=== PATIENT | female | born 1965 | race Caucasian/White ===

== ENCOUNTER 2023-06-29 17:26 | Inpatient (IN) | payer OTHER, SELFPAY ==
[2023-06-29 17:27] VITALS: BP 117/78; PULSE 93; RESP 18; TEMP 35.8; O2SAT 96; BMI 33.7
--- NOTE | 2023-06-29 19:01 | US_ITS ---
STUDY: ABDOMINAL ULTRASOUND - RIGHT UPPER QUADRANT REASON FOR VISIT: Female, 57 years old PAIN-RUQ TECHNIQUE: Ultrasound evaluation of the right upper quadrant was performed with real-time and static godoy-scale imaging. TECHNICAL QUALITY: Adequate. COMPARISON: None. FINDINGS: Liver: The liver measures 19.3 cm. There is diffusely increased echogenicity of the liver. The bile ducts are within normal limits. There is hepatic color flow. The direction of portal flow is hepatopetal. There is no demonstrated mass lesion. Gallbladder: Normal distended gallbladder. The gallbladder wall measures 2 mm. There is a positive sonographic Edwards''s sign. There is no pericholecystic fluid. There are multiple gallstones. Common Bile Duct (C.B.D.): The common bile duct measures 6 mm. Pancreas: Limited study due to bowel gas producing artifact Dilatation of pancreatic duct which may be on the basis of inflammatory disease or obstructing mass. CT recommended for more definitive evaluation . Right Kidney: Normal size of the right kidney. The right kidney measures 10.4 x 4.5 x 4.6 cm. Normal renal cortex. The right cortex measures 1.9 cm. There is no demonstrated renal mass or cyst. There is no right hydronephrosis. US/Gallbladder IMPRESSION: Enlarged fatty infiltrated liver. Gallstones and findings consistent with acute cholecystitis Limited visualization of the pancreas but nonspecific dilatation of the pancreatic duct. CT would be useful for more definitive evaluation if clinically indicated Electronically Signed: Blair Gutierrez MD at 20:06 EDT ,
[2023-06-29 19:15] LABS: Bacteria 0 SEEN /hpf (None Seen); Red Blood Cells-Urine 0 SEEN /hpf (0-5)
[2023-06-29 19:21] LABS: Absolute Lymphocyte Count 2.33 X10^3/uL (0.83-4.51); Absolute Neutrophil Count 5.8 X10^3/uL (2.0-7.7); Basophil# 0.07 X10^3/uL; Basophil% 0.8 % (0-1); Eosinophil# 0.22 X10^3/uL; Eosinophils% 2.4 % (0-5); Hematocrit 39.2 % (37-47); Hemoglobin 13.3 g/dL (12.0-15.0); Lymphocyte # 2.33 X10^3/ul (0.83-4.51); Lymphocyte % 25.3 % (19-41); Mean Corp Hgb Conc 33.9 g/dL (32-36); Mean Corpuscular Hgb 28.5 pg (27.0-32.0); Mean Corpuscular Volume 84.1 fL (81-99); Mean Platelet Vol. 9.9 fl (6.2-12.0); Monocyte# 0.69 X10^3/uL; Monocyte% 7.5 % (0-10); NRBC Flagged by Analyzer 0 % (0-5); Neutrophil # 5.79 X10^3/uL (2.7-7.7); Neutrophil % 62.8 % (47-70); Platelet Count 257 K/mm3 (150-450); RBC Distribution Width SD 39.5 fl (35.1-43.9); Red Blood Count 4.66 M/mm3 (4.2-5.4); White Blood Count 9.2 K/mm3 (4.4-11.0)
[2023-06-29] MEDS: 0.9% Normal Saline (1000mL) 1,000 ML 125 ML IV (19:21)
[2023-06-29] MEDS: Morphine 4 MG/ML Syringe IV ×2 (19:21→21:43)
[2023-06-29] MEDS: Ondansetron 4 MG/2 ML Vial IV ×2 (19:22→21:43)
[2023-06-29 19:33] LABS: Color, Urine Yellow (Yellow); Glucose, Dipstick Normal (Normal); Ketone-Dipstick 5 mg/dl (Negative); Leukocyte Esterase-Dipstick 500 /ul (Negative); Nitrite-Dipstick Positive (Negative); Occult Blood-Urine 250 /ul (Negative); Protein-Dipstick 30 mg/dl (Negative); Specific Gravity, Urine 1.025 (1.002-1.030); Urine Bilirubin Dipstick Negative (Negative); Urine Clarity Sl. Cloudy (Clear); Urine Urobilinogen 1 mg/dl (Normal)
[2023-06-29 19:48] LABS: AST(SGOT) 14 U/L (15-37); Alanine Aminotransfer ALT/SGPT 22 U/L (13-56); Albumin, Serum 3.7 g/dL (3.2-5.0); Alkaline Phosphatase 73 U/L (45-117); Bilirubin, Direct 0.12 mg/dL (0.00-0.30); Globulin 3.4 g/dL (2.2-4.2); Lipase 31 U/L (13-75); Protein, Total 7.1 g/dL (6.4-8.2)
--- NOTE | 2023-06-29 19:57 | EDS_ITS ---
HPI History of Present Illness Chief Complaint: Abd Pain Detail of Chief Complaint: Right upper quadrant pain that started 1 week ago. Informant: patient Onset/Context/Timing Onset: Weeks Context: Sudden Onset Timing: Intermittent and Waxes and wanes Quality: Colicky Location: Right upper quadrant radiating through to her back Current Severity: Severe Maximum Severity: Severe Worsened by: Worse after having chocolate chip cookie at 11 AM Relieved by: Nothing Associated Symptoms Associated Symptoms: Nausea and vomiting today Narrative Narrative: Patient is a 57-year-old woman with history of asthma, hypothyroidism who had a CT of the abdomen at outside facility 1 week ago and was told she had gallstones. She presents with acute right upper quadrant pain radiating through to her back. She had nausea and vomiting x1 today. Pain was made worse after having a chocolate chip cookie. There is a family history of cholelithiasis. She denies fever, chills night sweats. She denies black or maroon-colored stool. She does have a remote history of renal calculi. She denies dysuria, frequency, urgency or hematuria. She denies headache, visual, ocular auditory symptoms. She denies chest pain, shortness of breath, dyspnea on exertion, orthopnea or wheezing. Nothing makes the pain better. She states she has had nausea that has been co ntinuous for 1 week. Prior similar symptoms: Yes Recent Illness/Hospitalization: Yes [facility] Medical History Hyperlipidemia Hypothyroidism Home Medications Ranitidine [Zantac] 150 mg PO BID 10/28/15 [History Last Taken 11/07/15 08:00 150 MG] albuterol sulfate 90 mcg/actuation aerosol inhaler (Ventolin HFA) 1 - 2 puff inhalation Q4H PRN PRN Wheezing 10/28/15 [History Last Taken 10/28/15 1 - 2 PUFF] biotin 10,000 mcg capsule (Terrence Biotin) 10,000 mcg PO DAILY 10/28/15 [History Last Taken 10/28/15 97724 MCG] cholecalciferol (vitamin D3) 25 mcg (1,000 unit) tablet (Vitamin D3) 1,000 unit PO DAILY 10/28/15 [History Last Taken 10/28/15 1000 UNIT] coenzyme Q10 100 mg capsule (Co Q-10) 100 mg PO DAILY 10/28/15 [History Last Taken 10/28/15 100 MG] cyanocobalamin (vitamin B-12) 500 mcg tablet 1,500 mcg PO DAILY@0800 10/28/15 [History Last Taken 10/28/15 1500 MCG] multivitamin (Daily Multiple tablet) 1 ea PO DAILY 10/28/15 [History Last Taken 10/28/15 1 EACH] zinc sulfate 50 mg zinc (220 mg) capsule 220 mg PO DAILY 10/28/15 [History Last Taken 10/28/15 220 MG] atorvastatin 20 mg tablet 20 mg PO QHS 06/29/23 [History Last Taken Unknown] ciprofloxacin HCl 500 mg tablet 500 mg PO Q12H 06/29/23 [History Last Taken Unknown] dicyclomine 20 mg tablet 20 mg PO Q6H PRN abdominal pain 06/29/23 [History Last Taken Unknown] levothyroxine 88 mcg tablet 88 mcg PO DAILY 06/29/23 [History Last Taken Unknown] metronidazole 500 mg tablet 500 mg PO Q12H 06/29/23 [History Last Taken Unknown] sertraline 100 mg tablet 100 mg PO Q24H 06/29/23 [History Last Taken Unknown] Allergy/AdvReac Type Severity Reaction Status Date / Time No Known Allergies Allergy Verified 06/29/23 17:27 Social History (Updated 06/29/23 @ 19:[address] Vic Webster MD) household members: spouse Smoking Status: Never smoker ROS ROS ED Constitutional Constitutional ED: Denies chills, fever(s), subjective, sweats or weight loss Eyes Eyes: Denies blurry vision, change in vision or diplopia ENT ENT ED: Denies ear pain, rhinorrhea or sore throat Cardiovascular Cardiovascular: Denies chest pain, orthopnea, palpitations, paroxysmal nocturnal dyspnea or racing heartbeat Respiratory/Chest Respiratory/Chest: Denies cough, dyspnea, dyspnea on exertion, orthopnea or paroxysmal nocturnal dyspnea Gastrointestinal Gastrointestinal: Reports abdominal pain, nausea and vomiting; Denies constipation, diarrhea or melena Genitourinary Genitourinary ED: Denies dysuria, hematuria or urinary frequency Musculoskeletal Musculoskeletal: Denies arthralgias, back pain, myalgias or neck pain Integumentary Denies rash Neurologic Neurologic: Denies headache(s) or paresthesias Endocrine Endocrinology: Denies cold intolerance or heat intolerance Hematologic/Lymphatic Hematologic/Lymphatic: Reports systems reviewed and no addt'l complaints, except as documented EXAM Physical Exam Const Vital Signs: 06/29/23 17:27 Temperature 96.5 F L Temperature Source Temporal Pulse Rate 93 Respiratory Rate 18 Blood Pressure 117/78 Blood Pressure Mean 91 Pulse Ox 96 Oxygen Delivery Method Room Air Positive well nourished, well developed and obese Constitutional Narrative: Discomfort. She is hunched over the examination bed because of pain. General Appearance ED: well developed; Negative for cyanotic, diaphoretic, NAD or pallor Nutritional Appearance: obese HEENT Reports dry mucous membranes HEENT Narrative: Head is atraumatic and normocephalic. Ears are normal. Nares patent. Posterior pharynx is normal. Mouth ED: Yes dry mucous membranes Mouth: dry mucous membranes Eyes PERRL and EOMs intact bilaterally General Eye ED: Negative for pale conjunctiva or scleral icterus Neck no lymphadenopathy, supple and no JVD Chest Wall inspection of chest normal and palpation of chest normal Resp normal respiratory effort and clear to auscultation bilaterally Cardio regular rate, regular rhythm, S1 normal heart sound, S2 normal heart sound and no murmurs GI normal to inspection, nondistended, normoactive bowel sounds, non-distended and no masses; Negative for non-tender or hepatosplenomegaly GI Narrative: Is a clinical Edwards sign. Back/Spine no CVA tenderness Cervical Spine: Negative for cervical spine tenderness Thoracic Spine / Upper Back: Negative for thoracic spinal tenderness Lumbar Spine / Lower Back: Negative for lumbar spinal tenderness Extremity normal to inspection General Extremety ED: Negative for edema or tenderness General Extremity: Negative for edema Neuro oriented x3, CN's II-XII intact bilaterally and no sensory deficits noted Sensorium / Orientation: alert Motor Exam: strength 5/5 throughout Psych mental status grossly normal Skin no rashes or lesions noted, no wounds and skin turgor normal General Skin Exam: elasticity normal; Negative for jaundice or pallor MDM MDM MDM Narrative Medical decision making narrative: Diagnosis is biliary colic due to cholelithiasis, obstructing gallstone neck of the gallbladder, cholecystitis, acute on chronic cholecystitis. IV was established. Patient was medicated with Zofran and morphine. She was made NPO. CBC, liver profile and lipase were ordered. Ultrasound was also ordered. Lab Data Attestation: I reviewed the patient's lab results. Lab results narrative: Count is normal. Basic metabolic panel is normal. Liver profile is normal. Lipase is normal. Labs: Laboratory Results - last 24 hr 06/29/23 18:55 WBC 9.2 RBC 4.66 Hgb 13.3 Hct 39.2 MCV 84.1 MCH 28.5 MCHC 33.9 RDW Std Deviation 39.5 RDW Coeff of Fly 13.0 Plt Count 257 MPV 9.9 Immature Gran % (Auto) 1.200 H Neut % (Auto) 62.8 Lymph % (Auto) 25.3 [place] % (Auto) 7.5 Eos % (Auto) 2.4 Baso % (Auto) 0.8 Absolute Neuts (auto) 5.8 Absolute Lymphs (auto) 2.33 Nucleated RBC % 0 Total Bilirubin 0.40 Direct Bilirubin 0.12 AST 14 L ALT 22 Alkaline Phosphatase 73 Total Protein 7.1 Albumin 3.7 Globulin 3.4 Lipase 31 Urine Color Yellow Urine Clarity Sl. Cloudy Urine pH 5.0 Ur Specific [place] 1.025 Urine Protein 30 H Urine Glucose (UA) Normal Urine Ketones 5 H Urine Occult Blood 250 H Urine Nitrite Positive H Urine Bilirubin Negative Urine Urobilinogen 1 H Ur Leukocyte Esterase 500 H Urine RBC 0 SEEN Urine WBC 10-25 SEEN Ur Squamous Epith Cells 0-5 SEEN Urine Bacteria 0 SEEN Urine Mucus 1+ Radiography Diagnostic Testing: Clinical Impression(s) from Imaging Studies Gallbladder Ultrasound 06/29/23 19:01 IMPRESSION: Enlarged fatty infiltrated liver. Gallstones and findings consistent with acute cholecystitis Limited visualization of the pancreas but nonspecific dilatation of the pancreatic duct. CT would be useful for more definitive evaluation if clinically indicated Electronically Signed: Blair Gutierrez MD at 20:06 EDT , 0Found reveals several gallstones. There may be thickening of the gallbladder wall. The common bile duct appears normal. Awaiting formal read by radiologist. 2000 The radiology report was read. There is no pericholecystic fluid mention his report nor did I see any. Uncertain why he is calling this acute cholecystitis. Will discuss case with Dr. Mohamud. Treatment and Re-Evaluation :: Has pyuria without bacteria. Dr. Pulido requested a urine culture. She also requested Zosyn. Discharge Plan Triage Chief Complaint: Abd Pain ED Provider: Vic Webster Dx/Rx/DC Orders Clinical Impression: Hx of hypercholesterolemia, Pyuria, Acute calculous cholecystitis, Nausea & vomiting Prescriptions: No Action multivitamin [Daily Multiple] 1 EACH tablet 1 ea PO DAILY cyanocobalamin (vitamin B-12) 500 MCG tablet 1,500 mcg PO DAILY@0800 biotin [Terrence Biotin] 10,000 MCG capsule 10,000 mcg PO DAILY albuterol sulfate [Ventolin HFA] 1 INHALER inhaler 1 - 2 puff inhalation Q4H PRN PRN (Reason: Wheezing) coenzyme Q10 [Co Q-10] 100 MG capsule 100 mg PO DAILY zinc sulfate 220 MG capsule 220 mg PO DAILY cholecalciferol (vitamin D3) [Vitamin D3] 1,000 UNIT tablet 1,000 unit PO DAILY Ranitidine [Zantac] 150 MG tablet 150 mg PO BID atorvastatin 20 mg tablet 20 mg PO QHS Patient Comments: Take 1 tablet by mouth daily at bedtime. For cholesterol. ciprofloxacin HCl 500 mg tablet 500 mg PO Q12H Patient Comments: Take 1 tablet (500 mg) by mouth 2 times a day for 7 days. dicyclomine 20 mg tablet 20 mg PO Q6H PRN (Reason: abdominal pain) Patient Comments: Take 1 tablet (20 mg) by mouth 4 times a day before meals. levothyroxine 88 mcg tablet 88 mcg PO DAILY Patient Comments: TAKE 1 TABLET BY MOUTH DAILY before BREAKFAST metronidazole 500 mg tablet 500 mg PO Q12H Patient Comments: Take 1 tablet (500 mg) by mouth 2 times a day for 7 days. DO NOT TAKE WITH ALCOHOL sertraline 100 mg tablet 100 mg PO Q24H Patient Comments: Take 1 tablet by mouth once daily. Primary Care Provider: Blair Cheatham Referrals: Blair Cheatham MD [Primary Care Provider] - Disposition Disposition: Acute Care Hospital [facility]
[2023-06-29 20:00] VITALS: BP 175/114; PULSE 80; RESP 16; O2SAT 97
[2023-06-29 20:12] LABS: Mucous, Urine 1+ /hpf (<or=2+); Squamous Epithelial Cells - UA 0-5 SEEN /hpf (5-10); White Blood Cells 10-25 SEEN /hpf (0-5)
--- NOTE | 2023-06-29 20:48 | CT_ITS ---
EXAM: CT ABDOMEN AND PELVIS WITH INTRAVENOUS CONTRAST CLINICAL INDICATION: Upper quadrant pain, history of recent colitis TECHNIQUE: Helically acquired images were obtained of the abdomen and pelvis with intravenous contrast. This CT exam was performed using one or more of the following dose reduction techniques: automated exposure control, adjustment of the mA and/or kV according to patient size, and/or use of iterative reconstruction technique. CONTRAST: Oral and amp; IV Gastrografin and amp; 100mL [id number] COMPARISON: Right upper quadrant ultrasound on the same date. FINDINGS: LOWER THORAX: No significant abnormality. Lung bases are clear. No cardiomegaly. No significant pericardial effusion. ABDOMEN: LIVER: Hepatomegaly. GALLBLADDER AND BILE DUCTS: Cholelithiasis correlate with comparison ultrasound. No secondary signs of acute cholecystitis. No intra- or extrahepatic biliary ductal dilation. PANCREAS: No significant abnormality. No focal cystic or solid mass. SPLEEN: Splenomegaly. ADRENALS: No significant abnormality. No nodules. KIDNEYS AND URETERS: No significant abnormality. Normal renal size and position. No hydronephrosis. STOMACH AND BOWEL: Air-fluid levels within nondistended colon and no evidence of colonic wall thickening. PELVIS: APPENDIX: Normal appendix. BLADDER: No significant abnormality. REPRODUCTIVE: Normal as visualized. No mass. ABDOMEN and PELVIS: INTRAPERITONEAL SPACE: No significant abnormality. No ascites or other fluid collection. No free air. BONES/JOINTS: Degenerative changes in the spine. No suspicious lytic or blastic abnormality. SOFT TISSUES: No significant abnormality. No discrete abdominal or pelvic wall hernia. VASCULATURE: Trace atherosclerosis. Abdominal aorta is non-dilated. LYMPH NODES: No significant abnormality. No enlarged lymph nodes. CT/Abdomen/Pelvis WITH Contrast IMPRESSION: 1. No evidence of acute appendicitis. 2. Air-fluid levels within nondistended colon and no evidence of colonic wall thickening. Findings may be related to a diarrheal state or with the given history of near resolution of previously diagnosed colitis. 3. Hepatosplenomegaly. 4. Cholelithiasis correlate with comparison ultrasound. No secondary signs of acute cholecystitis. If there is clinical ambiguity, consider a hepatobiliary scan. Electronically Signed: Jonnathan Collier DO at 23:04 EDT ,
[2023-06-29] MEDS: Piperacil/Tazobactam 4.5 GM in 0.9% Normal Saline (100mL MB+) 100 ML IV (20:57)
[2023-06-29 21:39] LABS: Anion Gap 6 (5-15); BUN 11 mg/dL (7-18); BUN/Creat Ratio 17.5 RATIO (10-20); Calcium,Total 8.6 mg/dL (8.5-10.1); Chloride 106 mmol/L (98-107); Creatinine, Serum 0.63 mg/dL (0.55-1.02); EST Glomerular Filtration Rate 104 mL/min (>60); Est Glom Filt Rate - Afr Amer 126 mL/min (>60); Glucose 130 mg/dL (74-106); Potassium 3.5 mmol/L (3.5-5.1); Sodium Level 138 mmol/L (136-145)
[2023-06-29] MEDS: Pantoprazole Sodium 40 MG in 0.9% Normal Saline (100mL MB+) 100 ML 330 MG IV (21:44)
[2023-06-29 21:48] VITALS: BP 163/120; PULSE 84; RESP 16; O2SAT 97
[2023-06-29 22:46] VITALS: BP 144/85; PULSE 82; RESP 16; O2SAT 97
--- NOTE | 2023-06-29 23:37 | HP.PCM.SX_ITS ---
HPI - General General Date of Admission: 06/29/23 HPI Narrative RADHA MARAVILLA, is a 57 F who presents to the ER due to epigastric and right upper quadrant pain. Patient states she was previously at [place] last Tuesday diagnosed with colitis and she has been on Cipro Flagyl since then and also saw [facility] general surgery PA in follow-up. When patient came to the ER last Tuesday he complains of more upper abdominal pain. CT abdomen pelvis question colitis of the sigmoid rectum area. Patient has been having diarrhea but patient states she does have a history of mostly having diarrhea as well. Patient did have nausea and vomiting today. States she had a chocolate c ookie about 11 AM and nausea vomiting may be at 2 PM patient is not the best historian as far as time. Per note with PCP follow-up patient had [facility]ger Elbert with breaded chicken and Schuster and had pain in the office at the time of follow- up which was just yesterday. Plan from general surgery was to get an upper and lower scope. Patient had a previous colonoscopy in [address] Mcmahan. Patient on ultrasound showed positive Edwards sign, normal wall 2 mm, cholelithiasis, normal common bile duct, no pericholecystic fluid. Patient's white blood count was within normal limits as patient was on Cipro and Flagyl as an outpatient. Patient also been complaining of nausea every day even before she ever woke up. [facility] Medical History (Updated 06/30/23 @ 08:[address] Roxana Mohamud MD) Cervical cancer Hyperlipidemia Hypothyroidism Home Medications Ranitidine [Zantac] 150 mg PO BID 10/28/15 [History Last Taken 11/07/15 08:00 150 MG] albuterol sulfate 90 mcg/actuation aerosol inhaler (Ventolin HFA) 1 - 2 puff inhalation Q4H PRN PRN Wheezing 10/28/15 [History Last Taken 10/28/15 1 - 2 PUFF] biotin 10,000 mcg capsule (Terrence Biotin) 10,000 mcg PO DAILY 10/28/15 [History Last Taken 10/28/15 04584 MCG] cholecalciferol (vitamin D3) 25 mcg (1,000 unit) tablet (Vitamin D3) 1,000 unit PO DAILY 10/28/15 [History Last Taken 10/28/15 1000 UNIT] coenzyme Q10 100 mg capsule (Co Q-10) 100 mg PO DAILY 10/28/15 [History Last Taken 10/28/15 100 MG] cyanocobalamin (vitamin B-12) 500 mcg tablet 1,500 mcg PO DAILY@0800 10/28/15 [History Last Taken 10/28/15 1500 MCG] multivitamin (Daily Multiple tablet) 1 ea PO DAILY 10/28/15 [History Last Taken 10/28/15 1 EACH] zinc sulfate 50 mg zinc (220 mg) capsule 220 mg PO DAILY 10/28/15 [History Last Taken 10/28/15 220 MG] atorvastatin 20 mg tablet 20 mg PO QHS 06/29/23 [History Last Taken Unknown] ciprofloxacin HCl 500 mg tablet 500 mg PO Q12H 06/29/23 [History Last Taken Unknown] dicyclomine 20 mg tablet 20 mg PO Q6H PRN abdominal pain 06/29/23 [History Last Taken Unknown] levothyroxine 88 mcg tablet 88 mcg PO DAILY 06/29/23 [History Last Taken Unknow n] metronidazole 500 mg tablet 500 mg PO Q12H 06/29/23 [History Last Taken Unknown] sertraline 100 mg tablet 100 mg PO Q24H 06/29/23 [History Last Taken Unknown] Allergy/AdvReac Type Severity Reaction Status Date / Time No Known Allergies Allergy Verified 06/29/23 17:27 Surgical History (Updated 06/30/23 @ 01:39 by Lillian Smallwood) History of radical hysterectomy Social History (Updated 06/29/23 @ 19:[address] Vic Webster MD) household members: spouse Smoking Status: Never smoker ROS Constitutional Constitutional: Reports anorexia; Denies chills Eyes Eyes: Denies loss of vision ENT HEENT: Denies dysphagia Cardiovascular Cardiovascular: Denies chest pain Respiratory/Chest Respiratory/Chest: Denies cough Gastrointestinal Gastrointestinal: Reports abdominal pain, diarrhea, nausea and vomiting; Denies melena Genitourinary Genitourinary: Denies hematuria Musculoskeletal Musculoskeletal: Denies joint swelling Integumentary Integumentary: Denies jaundice Neurologic Neurologic: Denies focal weakness Psychiatric Psychiatric: Denies anxiety Hematologic/Lymphatic Hematologic/Lymphatic: Denies easy bleeding Vital Signs Vital Signs Vital Signs: 06/29/23 17:27 06/29/23 20:00 06/29/23 21:48 Temperature 96.5 F L Temperature Source Temporal Pulse Rate 93 80 84 Respiratory Rate 18 16 16 Blood Pressure 117/78 175/114 H 163/120 H Blood Pressure Mean 91 134 134 Pulse Ox 96 97 97 Oxygen Delivery Method Room Air Room Air Room Air 06/29/23 22:46 Temperature Temperature Source Pulse Rate 82 Respiratory Rate 16 Blood Pressure 144/85 H Blood Pressure Mean 104 Pulse Ox 97 Oxygen Delivery Method Room Air Weight Weight: 196 lb 14.4 oz Body Mass Index (BMI) 33.7 Physical Exam Const oriented x3 Resp normal respiratory effort Cardio regular rate GI soft to palpation Palpation: tender epigastric, RUQ and other (Equivocal rebound, no guarding) Extremity normal to inspection Results Lab / Micro Data 06/30/23 05:04 06/30/23 05:04 Labs: Laboratory Results - last 24 hr 06/29/23 18:55: WBC 9.2, RBC 4.66, Hgb 13.3, Hct 39.2, MCV 84.1, MCH 28.5, MCHC 33.9, RDW Std Deviation 39.5, RDW Coeff of Fly 13.0, Plt Count 257, MPV 9.9, Immature Gran % (Auto) 1.200 H, Neut % (Auto) 62.8, Lymph % (Auto) 25.3, [place] % (Auto) 7.5, Eos % (Auto) 2.4, Baso % (Auto) 0.8, Absolute Neuts (auto) 5.8, Absolute Lymphs (auto) 2.33, Nucleated RBC % 0, Sodium 138, Potassium 3.5, Chloride 106, Carbon Dioxide 26.0, Anion Gap 6, BUN 11, Creatinine 0.63, Estim Creat Clear Calc 86.10, Est GFR (MDRD) Af Amer 126, Est GFR (MDRD) Non-Af 104, BUN/Creatinine Ratio 17.5, Glucose 130 H, Calcium 8.6, Total Bilirubin 0.40, Direct Bilirubin 0.12, AST 14 L, ALT 22, Alkaline Phosphatase 73, Total Protein 7.1, Albumin 3.7, Globulin 3.4, Lipase 31, Urine Color Yellow, Urine Clarity Sl. Cloudy, Urine pH 5.0, Ur Specific [place] 1.025, Urine Protein 30 H, Urine Glucose (UA) Normal, Urine Ketones 5 H, Urine Occult Blood 250 H, Urine Nitrite Positive H, Urine Bilirubin Negative, Urine Urobilinogen 1 H, Ur Leukocyte Esterase 500 H, Urine RBC 0 SEEN, Urine WBC 10-25 SEEN, Ur Squamous Epith Cells 0-5 SEEN, Urine Bacteria 0 SEEN, Urine Mucus 1+ Radiology Impression Gallbladder Ultrasound 06/29/23 19:01 IMPRESSION: Enlarged fatty infiltrated liver. Gallstones and findings consistent with acute cholecystitis Limited visualization of the pancreas but nonspecific dilatation of the pancreatic duct. CT would be useful for more definitive evaluation if clinically indicated Electronically Signed: Blair Gutierrez MD at 20:06 EDT , Abdomen/Pelvis CT 06/29/23 20:48 IMPRESSION: 1. No evidence of acute appendicitis. 2. Air-fluid levels within nondistended colon and no evidence of colonic wall thickening. Findings may be related to a diarrheal state or with the given history of near resolution of previously diagnosed colitis. 3. Hepatosplenomegaly. 4. Cholelithiasis correlate with comparison ultrasound. No secondary signs of acute cholecystitis. If there is clinical ambiguity, consider a hepatobiliary scan. Electronically Signed: Jonnathan Collier DO at 23:04 EDT , Assessment & Plan Assessment/Plan (1) Acute calculous cholecystitis: (2) Nausea & vomiting: (3) UTI (urinary tract infection): (4) Diabetes mellitus: PLAN: Plan Patient did have a recheck CT abdomen pelvis as we are not able to get the ones from [facility] digitally. Did not show any evidence of colitis that I could see. Also the colitis that was called previously was in the sigmoid rectum area on that side or patient's pain is. We will plan for a laparoscopic cholecystectomy. We will admit patient n .p.o./IV fluids. Pain control Zosyn IV for acute cholecystitis Roxana Mohamud M.D. Pager: [phone] [facility] [address] [place] [address], [facility], [address] [place] [address] Office: [phone]
[2023-06-30] VITALS (16 sets, daily range): BP systolic 85–190; BP diastolic 57–123; PULSE 76–98; RESP 16–18; TEMP 36.3–36.7; O2SAT 92–98; BMI 33.6
[2023-06-30] MEDS: 0.9% Saline Lock 10 ML Syringe IV ×4 (02:35→11:34)
[2023-06-30] MEDS: Ondansetron 4 MG/2 ML Vial IV ×2 (02:37→10:48)
[2023-06-30] MEDS: HYDROmorphone 1 MG/ML Syringe IV ×2 (02:37→19:39)
[2023-06-30] MEDS: 0.9% Normal Saline (1000mL) 1,000 ML 120 ML IV ×2 (05:43→14:45)
[2023-06-30] MEDS: Piperacil/Tazobactam 3.375 GM in 0.9% Normal Saline (50mL MB+) 50 ML IV ×2 (06:02→14:45)
[2023-06-30] MEDS: Levothyroxine 88 MCG Tablet PO (06:06)
[2023-06-30] MEDS: HYDROmorphone 0.5 MG/0.5 ML SYRINGE IV ×2 (06:10→11:34)
[2023-06-30 06:25] LABS: Bedside Glucose 141 mg/dL (74-106)
[2023-06-30 06:44] LABS: Absolute Lymphocyte Count 1.73 X10^3/uL (0.83-4.51); Absolute Neutrophil Count 4.6 X10^3/uL (2.0-7.7); Basophil# 0.03 X10^3/uL; Basophil% 0.4 % (0-1); Eosinophil# 0.21 X10^3/uL; Eosinophils% 2.9 % (0-5); Hematocrit 35.8 % (37-47); Hemoglobin 12.1 g/dL (12.0-15.0); Lymphocyte # 1.73 X10^3/ul (0.83-4.51); Lymphocyte % 23.8 % (19-41); Mean Corp Hgb Conc 33.8 g/dL (32-36); Mean Corpuscular Hgb 28.7 pg (27.0-32.0); Mean Platelet Vol. 10.1 fl (6.2-12.0); Monocyte# 0.62 X10^3/uL; Monocyte% 8.5 % (0-10); NRBC Flagged by Analyzer 0 % (0-5); Neutrophil # 4.63 X10^3/uL (2.7-7.7); Neutrophil % 63.8 % (47-70); Platelet Count 217 K/mm3 (150-450); RBC Distribution Width CV 13.1 % (11.6-14.6); RBC Distribution Width SD 40.5 fl (35.1-43.9); Red Blood Count 4.21 M/mm3 (4.2-5.4); White Blood Count 7.3 K/mm3 (4.4-11.0)
[2023-06-30 07:05] LABS: Anion Gap 7 (5-15); BUN 7 mg/dL (7-18); BUN/Creat Ratio 12.2 RATIO (10-20); Calcium,Total 7.9 mg/dL (8.5-10.1); Chloride 107 mmol/L (98-107); Creatinine, Serum 0.57 mg/dL (0.55-1.02); EST Glomerular Filtration Rate 115 mL/min (>60); Est Glom Filt Rate - Afr Amer 140 mL/min (>60); Estimated Creatinine Clearance 95.17 ml/min; Glucose 139 mg/dL (74-106); Potassium 3.4 mmol/L (3.5-5.1); Sodium Level 141 mmol/L (136-145)
--- NOTE | 2023-06-30 08:04 | PN.SURG_ITS ---
Subjective Subjective Patient still complaining of some right upper quadrant pain throughout the night. Controlled with pain meds. Objective Data Objective Data Vital Signs: Vital Signs Temp Pulse Resp BP Pulse Ox O2 Del Method 98 F 76 18 137/84 H 98 Room Air 06/30/23 01:51 06/30/23 01:51 06/30/23 01:51 06/30/23 01:51 06/30/23 01:51 06/30/23 01:51 Oxygen Delivery Method Room Air Weight: 196 lb Body Mass Index (BMI) 33.6 Intake & Output: Intake and Output for Last 24 Hours 06/28/23 06/29/23 06/30/23 23:59 23:59 23:59 Intake Total 210 / 210 1000 / 1000 Balance 210 / 210 1000 / 1000 Lab / Micro Data 06/30/23 05:04 06/30/23 05:04 Labs: Laboratory Results - last 24 hr 06/29/23 18:55: WBC 9.2, RBC 4.66, Hgb 13.3, Hct 39.2, MCV 84.1, MCH 28.5, MCHC 33.9, RDW Std Deviation 39.5, RDW Coeff of Fly 13.0, Plt Count 257, MPV 9.9, Immature Gran % (Auto) 1.200 H, Neut % (Auto) 62.8, Lymph % (Auto) 25.3, [place] % (Auto) 7.5, Eos % (Auto) 2.4, Baso % (Auto) 0.8, Absolute Neuts (auto) 5.8, Absolute Lymphs (auto) 2.33, Nucleated RBC % 0, Sodium 138, Potassium 3.5, Chloride 106, Carbon Dioxide 26.0, Anion Gap 6, BUN 11, Creatinine 0.63, Estim Creat Clear Calc 86.10, Est GFR (MDRD) Af Amer 126, Est GFR (MDRD) Non-Af 104, BUN/Creatinine Ratio 17.5, Glucose 130 H, Calcium 8.6, Total Bilirubin 0.40, Direct Bilirubin 0.12, AST 14 L, ALT 22, Alkaline Phosphatase 73, Total Protein 7.1, Albumin 3.7, Globulin 3.4, Lipase 31, Urine Color Yellow, Urine Clarity Sl. Cloudy, Urine pH 5.0, Ur Specific [place] 1.025, Urine Protein 30 H, Urine Glucose (UA) Normal, Urine Ketones 5 H, Urine Occult Blood 250 H, Urine Nitrite Positive H, Urine Bilirubin Negative, Urine Urobilinogen 1 H, Ur Leukocyte Esterase 500 H, Urine RBC 0 SEEN, Urine WBC 10-25 SEEN, Ur Squamous Epith Cells 0-5 SEEN, Urine Bacteria 0 SEEN, Urine Mucus 1+ 06/30/23 05:04: WBC 7.3, RBC 4.21, Hgb 12.1, Hct 35.8 L, MCV 85.0, MCH 28.7, MCHC 33.8, RDW Std Deviation 40.5, RDW Coeff of Fly 13.1, Plt Count 217, MPV 10.1, Immature Gran % (Auto) 0.600, Neut % (Auto) 63.8, Lymph % (Auto) 23.8, [place] % (Auto) 8.5, Eos % (Auto) 2.9, Baso % (Auto) 0.4, Absolute Neuts (auto) 4.6, Absolute Lymphs (auto) 1.73, Nucleated RBC % 0, Sodium 141, Potassium 3.4 L , Chloride 107, Carbon Dioxide 27.0, Anion Gap 7, BUN 7, Creatinine 0.57, Estim Creat Clear Calc 95.17, Est GFR (MDRD) Af Amer 140, Est GFR (MDRD) Non-Af 115, BUN/Creatinine Ratio 12.2, Glucose 139 H, Calcium 7.9 L 06/30/23 06:04: POC Glucose 141 H Radiography Diagnostic Testing: Radiology Impression Gallbladder Ultrasound 06/29/23 19:01 IMPRESSION: Enlarged fatty infiltrated liver. Gallstones and findings consistent with acute cholecystitis Limited visualization of the pancreas but nonspecific dilatation of the pancreatic duct. CT would be useful for more definitive evaluation if clinically indicated Electronically Signed: Blair Gutierrez MD at 20:06 EDT , Abdomen/Pelvis CT 06/29/23 20:48 IMPRESSION: 1. No evidence of acute appendicitis. 2. Air-fluid levels within nondistended colon and no evidence of colonic wall thickening. Findings may be related to a diarrheal state or with the given history of near resolution of previously diagnosed colitis. 3. Hepatosplenomegaly. 4. Cholelithiasis correlate with comparison ultrasound. No secondary signs of acute cholecystitis. If there is clinical ambiguity, consider a hepatobiliary scan. Electronically Signed: Jonnathan Collier DO at 23:04 EDT , Physical Exam Const oriented x3 Resp normal respiratory effort Cardio regular rate GI soft to palpation Palpation: tender epigastric and RUQ Assessment & Plan Assessment/Plan (1) Acute calculous cholecystitis: (2) Nausea & vomiting: (3) UTI (urinary tract infection): (4) Diabetes mellitus: PLAN: Plan Reviewed the anatomy with the patient and discussed the procedure: laparoscopic cholecystectomy with possible cholangiograms, possible open. Review risks including but not limited to bleeding, infection, hernia, bile leak, retained gallstones requiring another procedure ERCP- Endoscopic Retrograde Cholangiopancreatography, injury to another organ (bile ducts, common bile duct, small bowel, etc.) and conversion to an open procedure. All questions were answered. Continue n.p.o./IV fluids IV Zosyn Pain control Urine culture pending. Roxana Mohamud M.D. Pager: [phone] [facility] [address] [place] [address], [address] [place] [address] Office: [phone]
--- NOTE | 2023-06-30 08:05 | NURSING ---
Called Dr. Cehatham's office at this time to get an accurate medlist for patient. Janett states she will let them know to fax it over.
[2023-06-30] MEDS: Pantoprazole Sodium 40 MG in 0.9% Normal Saline (100mL MB+) 100 ML 330 MG IV (09:28)
[2023-06-30 11:46] LABS: Bedside Glucose 139 mg/dL (74-106)
--- NOTE | 2023-06-30 14:31 | NURSING ---
Patient off unit to OR at this time.
--- NOTE | 2023-06-30 14:32 | NURSING ---
Sushila hui sent down with patient.
--- NOTE | 2023-06-30 15:00 | GALL_PTH ---
PATIENT: RADHA MARAVILLA LOC: PCU U#:[id number] AGE/SX: 57/F ROOM: [facility] RE07/02/[address]: Dr. Roxana Mohamud MD : 1965 BED: 1 DIS: 07/03/2023 SPEC #: [id number] RECD: 06/30/23 18:12 STATUS: KARAN MAGALLON #: [id number] HARLEY: 06/30/23 15:[address]: Roxana Mohamud DEPT: SURGICAL PATHOLOGY RECD BY: Gail Byrd ENTERED: 07/01/23 07:58 SP TYPE: JUHI VAIL DR: Dr. Blair Cheatham MD Tissues: Gallbladder, NOS Procedures: Surgery Specimen Level III HEADER OPERATION: Laparoscopic cholecystectomy with IOC PRE-OP DIAGNOSIS: Acute calculous cholecystitis, nausea and vomiting, UTI TISSUE SUBMITTED: Gallbladder MICROSCOPIC DIAGNOSIS Gallbladder, cholecystectomy: Chronic cholecystitis and cholelithiasis. AM:audrey 07/04/2023 MICROSCOPIC DESCRIPTION Slides are reviewed. GROSS DESCRIPTION Received is one container labeled with the patient's name and designated gallbladder. The specimen consists of a gallbladder measuring 6.0 cm in length and 3.0 cm in diameter. The external surface is pink-ogden, smooth and glistening for the most part. Focally it is granular, hemorrhagic and contains cautery artifact. The gallbladder contains green-yellow mucoid bile and multiple multifaceted brownish-black to orange stones measuring in aggregate 4.0 x 4.0 x 1.0 cm and 0.6 to 1.0 cm in greatest dimension. Sections of the fundus reveal focal cystic area measuring 0.5 cm in greatest dimension. The mucosa is bile-stained and without any mass lesions. The gallbladder wall measures 0.3 cm in thickness. [employer] Liaison sections from the gallbladder and the cystic duct are submitted in one cassette. The cyst area in fundus is entirely submitted. / SJ:audrey 07/01/2023 TC:3 CPT: 62042
--- NOTE | 2023-06-30 16:33 | OP.PCM_ITS ---
Report of Operation Date of Procedure: 06/30/23 Pre-Operative Diagnosis: Acute cholecystitis Post-Operative Diagnosis: Same Surgery/Procedure Performed:: Laparoscopic cholecystectomy Surgeon: Roxana Mohamud dispenser operator: Renee Evans Type of Anesthesia: General/Supplemental Anesthesiologist: Robin Sierra Special Medications: Zosyn 3.375 g IV every 8 hours for acute cholecystitis Specimen's removed: Gallbladder and stones Estimated Blood Loss (mL): 20 cc Description of Procedure: Indications: this is a 57 year-old female who developed abdominal pain/nausea/vomiting and on workup was found to have cholelithiasis, acute cholecystitis, with a normal common bile duct. Laparoscopic cholecystectomy was elected. Description procedure: The patient was placed on operating table in supine position. A timeout was completed verifying correct patient, procedure, site, p osition and special equipment prior to beginning procedure. General Anesthesia was induced. The abdomen was prepped and draped in usual sterile fashion. An incision was made in the natural skin line above the umbilicus. The fascia was elevated and incised. The peritoneum was elevated and incised. Entry into the peritoneum was confirmed visually and no bowel was noted in the vicinity of the incision. Mari trocar was placed. The abdomen was insufflated with carbon dioxide to a pressure of 12-15 mmHg. Patient tolerated insufflation well. The laparoscope was then inserted and abdomen inspected. No injuries from initial trocar placement were noted. Additional trochars were then inserted in the following locations 5 mm trocar in the epigastrium and 2 more 5 mm trochars along the right costal margin. The abdomen was inspected no abnormalities were found. The table is placed in reverse Trendelenburg position with the right side up. The dome of the gallbladder was grasped with atraumatic grasper passed through the lateral port and retracted over the dome of the liver. Infundibulum was then grasped with atraumatic grasper through the midclavicular port and retracted to the right lower quadrant. This maneuver exposed Calot's triangle. The peritoneum overlying the gallbladder infundibulum was then incised and cystic duct and artery identified and circumferentially dissected. The cystic duct and artery were then doubly clipped and divided close to the gallbladder. The gallbladder then dissected from its peritoneal attachments by electrocautery. Hemostasis was checked and the gallbladder and contained stones were removed using the endoscopic retrieval bag through the umbilical port. The gallbladder is passed off table as specimen. The gallbladder fossa was irrigated with saline and hemostasis obtained. There is no evidence of bleeding from the gallbladder fossa or cystic artery leakage of bile from the cystic duct stump. Secondary trochars removed under direct vision. No bleeding was noted the trocar sites. The laparoscope was withdrawn and umbilical trocar removed. The abdomen was allowed to collapse. The fascia of the 12 mm trocar was closed with a [id number] 0 Vicryl suture. The skin was closed with sutures of 4-0 Monocryl and Steri-Strips. The patient was extubated. The patient tolerated procedure well and was taken to the postanesthesia care unit in stable condition. Complications none
--- NOTE | 2023-06-30 16:36 | DCINST_ITS ---
Discharge Instructions Diet Discharge Diet: Light diet - advance as tolerated Activity Discharge Activity: May Not Drive (while taking narcotic pain medications.) May shower in (days): 1 Lifting Restrictions: no lifting >20 lbs x 2 wks, no strenuous exercise for 4 wks Dressing / Incision Call your doctor if your incision/area has: Continuous Slow Oozing, Sudden Increased Bleeding, Increased Pain/ Swelling, Increased Redness, Foul Smelling Discharge and Swelling at the incision site Call your doctor if you observe: Fever of 101 or Higher Remove Dressing in: 2 days Cleanse incision/area with: Soap & Water Additional Dressing/Incision Instructions:: Steri-Strips will fall off in 7 to 10 days, if they do not fall off okay to remove after 10 days. Follow Up Care Please Follow Up With: Roxana Mohamud MD When: Call the office for a follow-up appointment 2 weeks; after 5 PM and on the weekends call [phone] with any concerns. Test Results: Test results from this visit will be discussed in further detail at your follow- up appointment, if applicable. Discharge Plan Admission Admit Date/Time: 06/29/23 23:38 Attending Provider: Roxana Mohamud Primary Care Provider: Blair Cheatham Discharge Orders/Prescriptions Prescriptions: New oxycodone-acetaminophen 5-325 mg tablet 1 - 2 tab PO Q6H PRN (Reason: pain) 3 Days Qty: 14 0RF pantoprazole 40 mg tablet,delayed release (DR/EC) 40 mg PO DAILY Qty: 30 0RF nitrofurantoin monohyd/m-cryst [Macrobid] 100 mg capsule 100 mg PO Q12H 5 Days Qty: 10 0RF Rx Instructions: must administer with a meal/food Continued cyanocobalamin (vitamin B-12) 500 MCG tablet 1,500 mcg PO DAILY@0800 biotin [Terrence Biotin] 10,000 MCG capsule 10,000 mcg PO DAILY albuterol sulfate [Ventolin HFA] 1 INHALER inhaler 1 - 2 puff inhalation Q4H PRN PRN (Reason: Wheezing) coenzyme Q10 [Co Q-10] 100 MG capsule 100 mg PO DAILY zinc sulfate 220 MG capsule 220 mg PO DAILY cholecalciferol (vitamin D3) [Vitamin D3] 1,000 UNIT tablet 1,000 unit PO DAILY atorvastatin 20 mg tablet 20 mg PO QHS Patient Comments: Take 1 tablet by mouth daily at bedtime. For cholesterol. dicyclomine 20 mg tablet 20 mg PO Q6H PRN (Reason: abdominal pain) Patient Comments: Take 1 tablet (20 mg) by mouth 4 times a day before meals. levothyroxine 88 mcg tablet 88 mcg PO DAILY Patient Comments: TAKE 1 TABLET BY MOUTH DAILY before BREAKFAST sertraline 100 mg tablet 100 mg PO Q24H Patient Comments: Take 1 tablet by mouth once daily. hydroxyzine HCl 25 mg tablet 25 mg PO Q6H PRN (Reason: anxiety) Patient Comments: Take 1 tablet by mouth every 6 hours as needed for anxiety. Held metformin 500 mg tablet extended release 24 hr 500 mg PO BID Hold Instructions: 48 hr from IV contrast from CT a/p Patient Comments: Take 1 tablet by mouth twice daily. Discontinued Ranitidine [Zantac] 150 MG tablet 150 mg PO BID ciprofloxacin HCl 500 mg tablet 500 mg PO Q12H Patient Comments: Take 1 tablet (500 mg) by mouth 2 times a day for 7 days. metronidazole 500 mg tablet 500 mg PO Q12H Patient Comments: Take 1 tablet (500 mg) by mouth 2 times a day for 7 days. DO NOT TAKE WITH ALCOHOL No Action multivitamin [Daily Multiple] 1 EACH tablet 1 ea PO DAILY Referrals / Follow Up: Blair Cheatham MD [Primary Care Provider] - Disposition Disposition (needs filled in before D/C Order can be placed): Home, Self Care
[2023-06-30] MEDS: Bupivacaine Mpf 0.5% 30 ML VIAL (16:38)
[2023-06-30] MEDS: Lactated Ringers 1,000 ML 15 ML IV (17:09)
[2023-06-30 18:16] LABS: Bedside Glucose 226 mg/dL (74-106)
--- NOTE | 2023-06-30 20:54 | NURSING ---
pt transfered to u 103
[2023-06-30] MEDS: Nitrofurantoin Macrocrystals 100 MG Capsule PO (21:06)
[2023-06-30] MEDS: oxyCODONE 5 MG Tablet PO (21:27)
[2023-06-30] MEDS: Acetaminophen 325 MG Tablet 650 MG PO (21:27)
[2023-06-30] MEDS: Ketorolac 15 MG/ML Vial IV (21:28)
[2023-06-30] MEDS: 0.9% Normal Saline (500mL Bag) 500 ML 999 ML IV (21:29)
[2023-07-01] VITALS (8 sets, daily range): BP systolic 120–147; BP diastolic 67–94; PULSE 98–110; RESP 16–20; TEMP 36.3–36.7; O2SAT 91–100
[2023-07-01] MEDS: HYDROmorphone 0.5 MG/0.5 ML SYRINGE IV (00:25)
[2023-07-01] MEDS: Insulin Lispro 100 UNIT/ML INSULN.PEN SC ×2 (00:39→06:58)
[2023-07-01] MEDS: LORazepam 0.5 MG Tablet PO (00:39)
--- NOTE | 2023-07-01 00:43 | NURSING ---
pt still very painful, moaning and guarding her abd, lap sites dry and intact just small shadow drainage, vss, prn dilaudid 0.5 given, also ativan given.
[2023-07-01 00:59] LABS: Bedside Glucose 157 mg/dL (74-106)
[2023-07-01] MEDS: oxyCODONE 5 MG Tablet PO ×5 (02:26→21:33)
--- NOTE | 2023-07-01 02:58 | NURSING ---
dr adams notified of the pts continued pain and discomfort, bp 149/94, 110,20 91% increased her o2 to 3lnc, oxy given for pain. cxr, abd xray and labs ordered.
--- NOTE | 2023-07-01 03:10 | RAD_ITS ---
EXAM: XR ABDOMEN, 1 VIEW CLINICAL INDICATION: inc ab pain following lap silvia today TECHNIQUE: Frontal supine view of the abdomen/pelvis. COMPARISON: No relevant prior studies available. FINDINGS: LOWER THORAX: No acute pathology. GASTROINTESTINAL TRACT: Unremarkable. Non-obstructive. No bowel or stomach distention. ORGANS: Unremarkable as visualized. No organomegaly. No abnormal calcifications. BONES/JOINTS: No acute pathology. SOFT TISSUES: No acute pathology. RAD/Abdomen Single View (Portable) IMPRESSION: Non-obstructive bowel gas pattern. Electronically Signed: Stanislav Tubbs MD at 4:33 EDT ,
--- NOTE | 2023-07-01 03:10 | RAD_ITS ---
EXAM: XR CHEST, 1 VIEW CLINICAL INDICATION: dec insp effort with slight crackles post anesth TECHNIQUE: Frontal view of the chest. COMPARISON: No relevant prior studies available. FINDINGS: LUNGS AND PLEURAL SPACES: Subsegmental atelectasis in the left lung base. No pneumothorax. No effusion. HEART: Unremarkable. Cardiac silhouette not enlarged. MEDIASTINUM: Central airways and mediastinal contour are unremarkable. BONES/JOINTS: Unremarkable. SOFT TISSUES: Unremarkable. RAD/Chest 1 View (Portable) IMPRESSION: 1. No acute abnormalities identified in the chest. 2. Subsegmental atelectasis in the left lung base. Electronically Signed: Stanislav Tubbs MD at 4:29 EDT ,
[2023-07-01 03:25] LABS: Absolute Lymphocyte Count 0.92 X10^3/uL (0.83-4.51); Absolute Neutrophil Count 12.4 X10^3/uL (2.0-7.7); Basophil# 0.05 X10^3/uL; Basophil% 0.4 % (0-1); Eosinophil# 0.02 X10^3/uL; Eosinophils% 0.1 % (0-5); Hematocrit 35.5 % (37-47); Lymphocyte # 0.92 X10^3/ul (0.83-4.51); Lymphocyte % 6.5 % (19-41); Mean Corp Hgb Conc 33.8 g/dL (32-36); Mean Corpuscular Hgb 28.6 pg (27.0-32.0); Mean Corpuscular Volume 84.7 fL (81-99); Mean Platelet Vol. 9.2 fl (6.2-12.0); Monocyte# 0.81 X10^3/uL; Monocyte% 5.7 % (0-10); NRBC Flagged by Analyzer 0 % (0-5); Neutrophil # 12.35 X10^3/uL (2.7-7.7); Neutrophil % 86.5 % (47-70); Platelet Count 275 K/mm3 (150-450); RBC Distribution Width CV 13.2 % (11.6-14.6); RBC Distribution Width SD 40.6 fl (35.1-43.9); Red Blood Count 4.19 M/mm3 (4.2-5.4); White Blood Count 14.3 K/mm3 (4.4-11.0)
[2023-07-01 03:53] LABS: AST(SGOT) 23 U/L (15-37); Alanine Aminotransfer ALT/SGPT 30 U/L (13-56); Albumin, Serum 3.4 g/dL (3.2-5.0); Alkaline Phosphatase 70 U/L (45-117); Anion Gap 7 (5-15); BUN 10 mg/dL (7-18); BUN/Creat Ratio 12.7 RATIO (10-20); Calcium,Total 7.8 mg/dL (8.5-10.1); Chloride 106 mmol/L (98-107); Creatinine, Serum 0.78 mg/dL (0.55-1.02); EST Glomerular Filtration Rate 80 mL/min (>60); Est Glom Filt Rate - Afr Amer 97 mL/min (>60); Estimated Creatinine Clearance 69.54 ml/min; Globulin 3.3 g/dL (2.2-4.2); Glucose 170 mg/dL (74-106); Lactic Acid 1.7 mmol/L (0.4-1.9); Potassium 3.7 mmol/L (3.5-5.1); Protein, Total 6.7 g/dL (6.4-8.2); Sodium Level 137 mmol/L (136-145)
[2023-07-01] MEDS: Ketorolac 15 MG/ML Vial IV ×2 (05:05→09:52)
[2023-07-01] MEDS: Levothyroxine 88 MCG Tablet PO (07:06)
[2023-07-01] MEDS: Ondansetron 4 MG/2 ML Vial IV ×2 (07:08→16:41)
[2023-07-01 07:18] LABS: Bedside Glucose 159 mg/dL (74-106)
--- NOTE | 2023-07-01 08:43 | CT_ITS ---
STUDY: CT ABDOMEN AND PELVIS WITH CONTRAST REASON FOR EXAM: Female, 57 years old. Postoperative pain, GB done yesterday RADIATION DOSAGE (If Supplied By Facility): CTDIvol = ( 20.12 ) mGy, DLP = ( 1439.58 ) mGycm TECHNIQUE: Transaxial images were obtained from the dome of the diaphragm to the symphysis pubis without oral contrast. IV 100mL Isovue-300 was administered. Sagittal and coronal images were reconstructed. Individualized dose optimization techniques were used for this CT. COMPARISON: Comparison is made to prior study June 29, 2023. FINDINGS: Tiny right pleural effusion with bibasilar atelectasis is more prominent at the right lung base. The visualized portions of the heart are within normal limits. There is decreased attenuation of the liver consistent with steatosis. There are surgical clips in the gallbladder fossa consistent with a prior cholecystectomy. There is mild splenomegaly. Normal pancreas. There is evidence of a high density fluid in the right hepatorenal space extending into the right paracolic gutter suggestive of blood. Small amount of fluid is also seen in the pelvis with higher attenuation suggests above the resolving hematoma. Normal bilateral adrenal glands. Normal right kidney. Normal left kidney. Normal visualized stomach. Normal small intestine. Normal colon. The appendix is visualized and appears normal. Normal abdominal aorta. Normal inferior vena cava. Normal retroperitoneum. Normal urinary bladder. Postsurgical changes are seen in the anterior abdominal wall as well as in the right lateral abdominal wall in keeping with the recent cholecystectomy. Normal osseous structures. CT/Abdomen/Pelvis W IV Cont ONLY IMPRESSION: Status post cholecystectomy. Findings suggestive of a small amount of blood within the right hepatorenal space as well as the right paracolic gutter and the pelvis more prominent on the right side. Fatty infiltration of the liver. Mild splenomegaly. Bibasilar atelectasis more prominent on the right side with the tiny pleural effusion. Electronically Signed: Ahmet Burciaga MD at 10:59 EDT ,
--- NOTE | 2023-07-01 08:50 | PCM.PN.SRG ---
"Subjective Subjective Patient is complaining of severe pain in the right upper quadrant. Patient's nurse says this has been going on all night and nothing was able to control her pain. She has not taken anything by mouth. Objective Data Objective Data Vital Signs: Vital Signs Temp Pulse Resp BP Pulse Ox O2 Del Method O2 Flow Rate 98.0 F 99 18 120/79 97 Room Air 3 07/01/23 08:39 07/01/23 08:39 07/01/23 08:39 07/01/23 08:39 07/01/23 08:39 07/01/23 08:39 07/01/23 05:00 Oxygen Flow Rate (L/min) 3 Oxygen Delivery Method Room Air Weight: 196 lb Body Mass Index (BMI) 33.6 Intake & Output: Intake and Output for Last 24 Hours 06/29/23 06/30/23 07/01/23 23:59 23:59 23:59 Intake Total 210 / 210 3210 / 3210 500 / 500 Balance 210 / 210 3210 / 3210 500 / 500 Lab / Micro Data 07/01/23 03:19 07/01/23 03:19 Labs: Laboratory Results - last 24 hr 06/30/23 11:25: POC Glucose 139 H 06/30/23 17:34: POC Glucose 226 H 07/01/23 00:32: POC Glucose 157 H 07/01/23 03:19: WBC 14.3 H, RBC 4.19 L, Hgb 12.0, Hct 35.5 L, MCV 84.7, MCH 28.6, MCHC 33.8, RDW Std Deviation 40.6, RDW Coeff of Fly 13.2, Plt Count 275, MPV 9.2, Immature Gran % (Auto) 0.800, Neut % (Auto) 86.5 H, Lymph % (Auto) 6.5 L, [place] % (Auto) 5.7, Eos % (Auto) 0.1, Baso % (Auto) 0.4, Absolute Neuts (auto) 12.4 H, Absolute Lymphs (auto) 0.92, Nucleated RBC % 0, Sodium 137, Potassium 3.7, Chloride 106, Carbon Dioxide 24.0, Anion Gap 7, BUN 10, Creatinine 0.78, Estim Creat Clear Calc 69.54, Est GFR (MDRD) Af Amer 97, Est GFR (MDRD) Non-Af 80, BUN/Creatinine Ratio 12.7, Glucose 170 H, Lactic Acid 1.7, Calcium 7.8 L, Total Bilirubin 0.70, AST 23, ALT 30, Alkaline Phosphatase 70, Total Protein 6.7, Albumin 3.4, Globulin 3.3, Albumin/Globulin Ratio 1.0 07/01/23 06:56: POC Glucose 159 H Radiography Diagnostic Testing: Radiology Impression Chest X-Ray 07/01/23 03:10 IMPRESSION: 1. No acute abnormalities identified in the chest. 2. Subsegmental atelectasis in the left lung base. Electronically Signed: Stanislav Tubbs MD at 4:29 EDT Reading Location ID and State: [employer] Tel , Service support , KUB X-Ray 07/01/23 03:10 IMPRESSION: Non-obstructive bowel gas pattern. Electronically Signed: Stanislav Tubbs MD at 4:33 EDT , Physical Exam Const oriented x3 General Appearance: ill appearing Resp normal respiratory effort GI soft to palpation Palpation: tender RUQ Assessment & Plan Assessment/Plan (1) Acute calculous cholecystitis: PLAN: Patient had laparoscopic cholecystectomy yesterday for acute cholecystitis. The patient is having extreme right upper quadrant pain this morning. The patient was given multiple narcotics and nonnarcotic pain medications overnight which did not help. She was also confused and did have a little decrease in her blood pressure with narcotics. I am going to order CT scan to evaluate the right upper quadrant with IV contrast. I have also ordered some anxiety meds as I believe a lot of her anxiety is causing things to be worse. I am hoping this will decrease pain medication administration. Geovanny Harris MD Pager: [facility] [address] [place] [address], [address] [place] [address] Office: "
[2023-07-01] MEDS: Nitrofurantoin Macrocrystals 100 MG Capsule PO ×2 (09:53→16:41)
[2023-07-01] MEDS: LORazepam 2 MG/ML Syringe IV (09:53)
[2023-07-01] MEDS: 0.9% Normal Saline (1000mL) 1,000 ML 120 ML IV (09:55)
[2023-07-01] MEDS: Acetaminophen 325 MG Tablet 650 MG PO (09:56)
--- NOTE | 2023-07-01 11:56 | PN_ITS ---
Progress Note Reviewed the patient CT scan. There is concern for hematoma on the right paracolic gutter. It seems to be right near where her right upper quadrant port sites are. She likely bled and that is causing her increased pain. Her hemoglobin was stable this morning so the bleeding may have stopped. I am rechecking hemoglobin now. If the noon hemoglobin is decreased I will make her n.p.o. and take her for evacuation of the hematoma and try to stop the bleeding later this afternoon. I will not be discharging her today. I will recheck a hemoglobin in the morning. I will also make her n.p.o. after midnight in case her morning hemoglobin drops. I discussed this with the patient as well. Geovanny Harris MD Pager: [facility] [address] [place] [address], [address] [place] [address] Office:
[2023-07-01] MEDS: Pantoprazole Sodium 40 MG in 0.9% Normal Saline (100mL MB+) 100 ML 330 MG IV (11:59)
[2023-07-01] MEDS: Sertraline 100 MG Tablet PO (12:00)
[2023-07-01 12:03] LABS: Bedside Glucose 181 mg/dL (74-106)
[2023-07-01 12:08] LABS: Hematocrit 33.2 % (37-47); Hemoglobin 11.5 g/dL (12.0-15.0)
--- NOTE | 2023-07-01 14:31 | NURSING ---
moderate bruising noted around umbilicus
[2023-07-01 16:53] LABS: Bedside Glucose 144 mg/dL (74-106)
[2023-07-01] MEDS: hydrOXYzine PAM 25 MG Capsule PO (21:38)
[2023-07-01 22:21] LABS: Bedside Glucose 150 mg/dL (74-106)
[2023-07-02] VITALS (11 sets, daily range): BP systolic 134–156; BP diastolic 81–102; PULSE 88–109; RESP 16–19; TEMP 35.9–37.4; O2SAT 93–97; BMI 33.4
[2023-07-02 01:10] LABS: Bedside Glucose 167 mg/dL (74-106)
[2023-07-02] MEDS: 0.9% Normal Saline (1000mL) 1,000 ML 40 ML IV (03:53)
[2023-07-02] MEDS: oxyCODONE 5 MG Tablet PO ×2 (03:53→17:21)
[2023-07-02 07:00] LABS: Absolute Lymphocyte Count 1.15 X10^3/uL (0.83-4.51); Absolute Neutrophil Count 3.8 X10^3/uL (2.0-7.7); Basophil# 0.02 X10^3/uL; Basophil% 0.4 % (0-1); Eosinophil# 0.17 X10^3/uL; Hematocrit 28.3 % (37-47); Hemoglobin 9.5 g/dL (12.0-15.0); Lymphocyte # 1.15 X10^3/ul (0.83-4.51); Lymphocyte % 20.2 % (19-41); Mean Corp Hgb Conc 33.6 g/dL (32-36); Mean Corpuscular Volume 86.3 fL (81-99); Mean Platelet Vol. 9.7 fl (6.2-12.0); Monocyte# 0.56 X10^3/uL; Monocyte% 9.9 % (0-10); NRBC Flagged by Analyzer 0 % (0-5); Neutrophil # 3.75 X10^3/uL (2.7-7.7); Platelet Count 210 K/mm3 (150-450); RBC Distribution Width CV 13.3 % (11.6-14.6); Red Blood Count 3.28 M/mm3 (4.2-5.4); White Blood Count 5.7 K/mm3 (4.4-11.0)
[2023-07-02] MEDS: Levothyroxine 88 MCG Tablet PO (07:01)
[2023-07-02 07:21] LABS: Bedside Glucose 139 mg/dL (74-106)
[2023-07-02 07:38] LABS: Anion Gap 4 (5-15); BUN 10 mg/dL (7-18); BUN/Creat Ratio 20.2 RATIO (10-20); Calcium,Total 8.1 mg/dL (8.5-10.1); Chloride 107 mmol/L (98-107); EST Glomerular Filtration Rate 137 mL/min (>60); Est Glom Filt Rate - Afr Amer 165 mL/min (>60); Estimated Creatinine Clearance 108.49 ml/min; Glucose 143 mg/dL (74-106); Potassium 3.1 mmol/L (3.5-5.1); Sodium Level 138 mmol/L (136-145)
[2023-07-02] MEDS: Albuterol 2.5 MG/3 ML VIAL.NEB. INHALATION (07:45)
--- NOTE | 2023-07-02 08:13 | PN.SURG_ITS ---
Subjective Subjective The patient still had pain just as bad as yesterday. She also had anxiety overnight. Objective Data Objective Data Vital Signs: Vital Signs Temp Pulse Resp BP Pulse Ox O2 Del Method O2 Flow Rate 98.7 F 92 19 H 149/100 H 95 Room Air 3 07/02/23 03:00 07/02/23 07:47 07/02/23 07:47 07/02/23 03:00 07/02/23 03:00 07/02/23 07:42 07/01/23 05:00 Oxygen Flow Rate (L/min) 3 Oxygen Delivery Method Room Air Weight: 196 lb Body Mass Index (BMI) 33.6 Intake & Output: Intake and Output for Last 24 Hours 06/30/23 07/01/23 07/02/23 23:59 23:59 23:59 Intake Total 3210 / 3210 2405 / 2405 635.33 / 635.33 Balance 3210 / 3210 2405 / 2405 635.33 / 635.33 Lab / Micro Data 07/02/23 05:38 07/02/23 05:38 Labs: Laboratory Results - last 24 hr 07/01/23 11:43: POC Glucose 181 H 07/01/23 11:55: Hgb 11.5 L, Hct 33.2 L 07/01/23 16:32: POC Glucose 144 H 07/01/23 20:46: POC Glucose 150 H 07/02/23 00:51: POC Glucose 167 H 07/02/23 05:38: WBC 5.7, RBC 3.28 L, Hgb 9.5 L, Hct 28.3 L, MCV 86.3, MCH 29.0, MCHC 33.6, RDW Std Deviation 42.0, RDW Coeff of Fly 13.3, Plt Count 210, MPV 9.7, Immature Gran % (Auto) 0.500, Neut % (Auto) 66.0, Lymph % (Auto) 20.2, [place] % (Auto) 9.9, Eos % (Auto) 3.0, Baso % (Auto) 0.4, Absolute Neuts (auto) 3.8, Absolute Lymphs (auto) 1.15, Nucleated RBC % 0, Sodium 138, Potassium 3.1 L, Chloride 107, Carbon Dioxide 27.0, Anion Gap 4 L, BUN 10, Creatinine 0.50 L, Estim Creat Clear Calc 108.49, Est GFR (MDRD) Af Amer 165, Est GFR (MDRD) Non-Af 137, BUN/Creatinine Ratio 20.2 H, Glucose 143 H, Calcium 8.1 L 07/02/23 07:00: POC Glucose 139 H Micro: Microbiology 06/29/23 18:55 Urine, Clean Catch Urine Culture - Final Culture exhibits no growth. Radiography Diagnostic Testing: Radiology Impression Abdomen/Pelvis CT 07/01/23 08:43 IMPRESSION: Status post cholecystectomy. Findings suggestive of a small amount of blood within the right hepatorenal space as well as the right paracolic gutter and the pelvis more prominent on the right side. Fatty infiltration of the liver. Mild splenomegaly. Bibasilar atelectasis more prominent on the right side with the tiny pleural effusion. Electronically Signed: Ahmet Burciaga MD at 10:59 EDT , Physical Exam Const oriented x3 General Appearance: ill appearing Resp normal respiratory effort GI soft to palpation Palpation: tender RUQ Extremity normal to inspection Assessment & Plan Assessment/Plan (1) Postoperative bleeding from incision: PLAN: Patient has a scan yesterday that showed hematoma under the right upper quadrant incision. The hemoglobin at noon was stable but today's hemoglobin has shown a 2 g drop. Patient is still in extreme pain and she is having hypoactive bowel sounds. I discussed taking her back for exploratory laparoscopy to evacuate the hematoma and try to stop any active bleeding. I discussed exploratory laparoscopy and the risk of bleeding, infection, injury to underlying organs. Patient understands the risks and is willing to proceed. I also explained that if there was arterial bleeding I may have to convert to open if I am unable to control the bleeding laparoscopically. Patient is also hypokalemic and this is being replaced. Geovanny Harris MD Pager: [facility] [address] [place] [address], [address] [place] [address] Office:
[2023-07-02] MEDS: LORazepam 2 MG/ML Syringe IV (08:21)
[2023-07-02] MEDS: Potassium Chloride 10mEq/100mL 10 MEQ/100 ML IV.SOLN. 100 MEQ IV BOLUS ×4 (08:22→13:47)
[2023-07-02] MEDS: 0.9% Saline Lock 10 ML Syringe IV (08:32)
[2023-07-02] MEDS: HYDROmorphone 0.5 MG/0.5 ML SYRINGE IV (08:32)
[2023-07-02 08:46] LABS: Bedside Glucose 165 mg/dL (74-106)
[2023-07-02] MEDS: Cefazolin 2 GM in 0.9% Normal Saline (100mL Bag) 100 ML IV (09:15)
--- NOTE | 2023-07-02 09:16 | NURSING ---
0860 patient taken down for surgery son was called and aware. report given to catherine Vega
--- NOTE | 2023-07-02 10:37 | OP.PCM_ITS ---
Report of Operation Date of Procedure: 07/02/23 Pre-Operative Diagnosis: Postoperative bleeding from right upper quadrant port site Post-Operative Diagnosis: Same Surgery/Procedure Performed:: Exploratory laparoscopy with evacuation of hematoma Type of Anesthesia: General/Regional Specimen's removed: None Estimated Blood Loss (mL): 20 Description of Procedure: Patient was brought back to the operating room and general anesthesia was induced. The bandages were removed from the abdomen and the abdomen was prepped and draped in usual sterile fashion. An incision was made in the left upper quadrant using Visiport technique a 5 mm port was placed into the abdomen and the abdomen was insufflated 15 mmHg. The camera was then inserted into the abdomen without the obturator and it was inspected and there were no signs of injury from entry. Under direct visualization 3 more 5 mm ports were placed. There was a large blood clot in the right upper quadrant in the area of the lateral port site. This clot was all suctioned up. There was no active bleeding from either of the port sites. The gallbladder fossa was inspected and irrigated and suctioned and there was no active bleeding there. Patient had diffuse oozing from the omentum. She also had oozing from an adhesion in the left lower quadrant where the sigmoid was attached to the anterior abdominal wa ll. The abdomen was copiously irrigated with over 6 L of fluid and then suctioned. There was some oozing coming from that adhesion to the sigmoid colon so a clip was placed around the adhesion as it was too close to the abdominal wall and colon to be lysed. The pelvis was irrigated copiously and suctioned. No more active bleeding was encountered. The port site was cauterized from the inside using electrocautery hook. There was good hemostasis at both port sites with no signs of active bleeding. The ports were removed under direct visualization and then they were closed with interrupted 4-0 Monocryl sutures. Steri-Strips and bandages were applied to the old and new incisions. Patient was taken to PACU. Labs will be drawn now and tonight and in the morning. I will keep the patient n.p.o. as she will likely develop ileus due to the bleeding in the abdomen. Admit VTE Documentation VTE Mechan Device Prophylaxis: SCD's
[2023-07-02 10:44] LABS: Absolute Lymphocyte Count 1.37 X10^3/uL (0.83-4.51); Absolute Neutrophil Count 4.4 X10^3/uL (2.0-7.7); Basophil# 0.05 X10^3/uL; Basophil% 0.8 % (0-1); Eosinophil# 0.16 X10^3/uL; Eosinophils% 2.4 % (0-5); Hematocrit 28.2 % (37-47); Hemoglobin 9.1 g/dL (12.0-15.0); Lymphocyte # 1.37 X10^3/ul (0.83-4.51); Lymphocyte % 20.6 % (19-41); Mean Corp Hgb Conc 32.3 g/dL (32-36); Mean Corpuscular Hgb 28.3 pg (27.0-32.0); Mean Corpuscular Volume 87.9 fL (81-99); Mean Platelet Vol. 9.5 fl (6.2-12.0); Monocyte# 0.61 X10^3/uL; Monocyte% 9.2 % (0-10); NRBC Flagged by Analyzer 0 % (0-5); Neutrophil # 4.39 X10^3/uL (2.7-7.7); Neutrophil % 65.8 % (47-70); Platelet Count 230 K/mm3 (150-450); RBC Distribution Width CV 13.3 % (11.6-14.6); RBC Distribution Width SD 42.5 fl (35.1-43.9); Red Blood Count 3.21 M/mm3 (4.2-5.4); White Blood Count 6.7 K/mm3 (4.4-11.0)
[2023-07-02 10:54] LABS: Anion Gap 6 (5-15); BUN 8 mg/dL (7-18); BUN/Creat Ratio 16.3 RATIO (10-20); Calcium,Total 7.4 mg/dL (8.5-10.1); Chloride 110 mmol/L (98-107); Creatinine, Serum 0.49 mg/dL (0.55-1.02); EST Glomerular Filtration Rate 138 mL/min (>60); Est Glom Filt Rate - Afr Amer 167 mL/min (>60); Glucose 183 mg/dL (74-106); Potassium 3.5 mmol/L (3.5-5.1); Sodium Level 141 mmol/L (136-145)
[2023-07-02 11:00] LABS: International Normalized Ratio 1.2; Prothrombin Time (Protime)PT. 14.9 SECONDS (11.7-14.9)
[2023-07-02 11:01] LABS: Partial Thromboplast Time 27.3 Seconds (24.1-36.2)
[2023-07-02 11:20] LABS: Bedside Glucose 160 mg/dL (74-106)
[2023-07-02] MEDS: Ipratropium/Albuterol Sulfate 3 ML AMPUL.NEB INHALATION (11:29)
[2023-07-02 12:54] LABS: Bedside Glucose 156 mg/dL (74-106)
--- NOTE | 2023-07-02 13:45 | CASEMGMT ---
RN GAL Face to Face with patient for initial transition planning/care coordination assessment. RN CM introduced self and role at [facility]. Patient lying in bed, alert and oriented. Patient willing to participate in assessment and is able to answer all questions appropriately. Care providers, pharmacy, and demographics verified. Patient wishes to discharge home, denies need for home health at this time. Patient states she has no further needs or concerns at this time. CM to follow for discharge planning needs that may arise. PCP: [facility] Specialists: none Preferred Pharmacy: [facility] Insurance: [employer] Prescription Benefit: yes Living Will/HPOA: none LNOK: son, sister Living Arrangements: Patient lives with son in a 2 story home. Patient states she is independent and able to ambulate stairs. Transportation: self, son DME/HHC: Patient states she has higher toilet. No previous HHC or SNF Disposition Plan: Patient to discharge home with family support and follow-up plans in place. Rohini WOOTEN, RN, CM
[2023-07-02] MEDS: Pantoprazole Sodium 40 MG in 0.9% Normal Saline (100mL MB+) 100 ML 330 MG IV (14:57)
[2023-07-02] MEDS: Sertraline 100 MG Tablet PO (15:04)
[2023-07-02] MEDS: Nitrofurantoin Macrocrystals 100 MG Capsule PO ×2 (15:04→17:20)
[2023-07-02] MEDS: Acetaminophen 325 MG Tablet 650 MG PO ×2 (15:07→21:34)
[2023-07-02] MEDS: hydrOXYzine PAM 25 MG Capsule PO ×2 (15:28→21:35)
[2023-07-02 16:16] LABS: Hematocrit 29.7 % (37-47); Hemoglobin 9.9 g/dL (12.0-15.0)
[2023-07-02 17:35] LABS: Bedside Glucose 121 mg/dL (74-106)
[2023-07-02] MEDS: 0.9% Normal Saline (1000mL) 1,000 ML 100 ML IV (18:06)
[2023-07-02 23:48] LABS: Bedside Glucose 124 mg/dL (74-106)
[2023-07-03] MEDS: oxyCODONE 5 MG Tablet PO ×4 (01:06→15:28)
[2023-07-03] MEDS: 0.9% Normal Saline (1000mL) 1,000 ML 100 ML IV (02:40)
[2023-07-03 03:29] VITALS: BP 166/98; PULSE 104; RESP 16; TEMP 37.1; O2SAT 93
[2023-07-03] MEDS: hydrOXYzine PAM 25 MG Capsule PO (04:15)
[2023-07-03] MEDS: Acetaminophen 325 MG Tablet 650 MG PO (04:15)
[2023-07-03] MEDS: Levothyroxine 88 MCG Tablet PO (04:35)
[2023-07-03 06:47] LABS: Absolute Neutrophil Count 4.1 X10^3/uL (2.0-7.7); Basophil# 0.03 X10^3/uL; Basophil% 0.5 % (0-1); Eosinophil# 0.23 X10^3/uL; Eosinophils% 3.8 % (0-5); Hematocrit 28.7 % (37-47); Hemoglobin 9.7 g/dL (12.0-15.0); Lymphocyte % 18.2 % (19-41); Mean Corp Hgb Conc 33.8 g/dL (32-36); Mean Corpuscular Hgb 28.9 pg (27.0-32.0); Mean Corpuscular Volume 85.4 fL (81-99); Mean Platelet Vol. 9.5 fl (6.2-12.0); Monocyte# 0.57 X10^3/uL; Monocyte% 9.4 % (0-10); NRBC Flagged by Analyzer 0 % (0-5); Neutrophil # 4.06 X10^3/uL (2.7-7.7); Neutrophil % 67.3 % (47-70); Platelet Count 220 K/mm3 (150-450); RBC Distribution Width CV 13.2 % (11.6-14.6); RBC Distribution Width SD 40.9 fl (35.1-43.9); Red Blood Count 3.36 M/mm3 (4.2-5.4)
[2023-07-03 06:48] LABS: Bedside Glucose 118 mg/dL (74-106)
[2023-07-03 07:13] LABS: Anion Gap 6 (5-15); BUN 4 mg/dL (7-18); BUN/Creat Ratio 9.2 RATIO (10-20); Chloride 108 mmol/L (98-107); Creatinine, Serum 0.44 mg/dL (0.55-1.02); EST Glomerular Filtration Rate 158 mL/min (>60); Est Glom Filt Rate - Afr Amer 192 mL/min (>60); Estimated Creatinine Clearance 123.28 ml/min; Glucose 121 mg/dL (74-106); Potassium 3.3 mmol/L (3.5-5.1); Sodium Level 138 mmol/L (136-145)
--- NOTE | 2023-07-03 08:31 | PCM.PN.SRG ---
Subjective Subjective Patient reports he is in less pain and she only required oral pain medications overnight. She says she is passing gas this morning. She denies nausea or vomiting overnight. She is hungry and would like to try diet. Objective Data Objective Data Vital Signs: Vital Signs Temp Pulse Resp BP Pulse Ox O2 Del Method O2 Flow Rate 98.8 F 104 H 16 166/98 H 93 Room Air 3 07/03/23 03:29 07/03/23 03:29 07/03/23 03:29 07/03/23 03:29 07/03/23 03:29 07/03/23 03:29 07/01/23 05:00 Oxygen Flow Rate (L/min) 3 Oxygen Delivery Method Room Air Weight: 195 lb 15.996 oz Body Mass Index (BMI) 33.4 Intake & Output: Intake and Output for Last 24 Hours 07/01/23 07/02/23 07/03/23 23:59 23:59 23:59 Intake Total 2405 / 2405 3020.49 / 3070.49 956.67 / 956.67 Balance 2405 / 2405 3020.49 / 3070.49 956.67 / 956.67 Lab / Micro Data 07/03/23 06:10 07/03/23 06:10 Labs: Laboratory Results - last 24 hr 07/02/23 08:15: POC Glucose 165 H 07/02/23 10:29: WBC 6.7, RBC 3.21 L, Hgb 9.1 L, Hct 28.2 L, MCV 87.9, MCH 28.3, MCHC 32.3, RDW Std Deviation 42.5, RDW Coeff of Fly 13.3, Plt Count 230, MPV 9.5, Immature Gran % (Auto) 1.200 H, Neut % (Auto) 65.8, Lymph % (Auto) 20.6, [place] % (Auto) 9.2, Eos % (Auto) 2.4, Baso % (Auto) 0.8, Absolute Neuts (auto) 4.4, Absolute Lymphs (auto) 1.37, Nucleated RBC % 0, PT 14.9, INR 1.2, APTT 27.3, Sodium 141, Potassium 3.5, Chloride 110 H, Carbon Dioxide 25.0, Anion Gap 6, BUN 8, Creatinine 0.49 L, Estim Creat Clear Calc 110.70, Est GFR (MDRD) Af Amer 167, Est GFR (MDRD) Non-Af 138, BUN/Creatinine Ratio 16.3, Glucose 183 H, Calcium 7.4 L, Blood Type A NEGATIVE, Antibody Screen NEGATIVE, Crossmatch See Detail 07/02/23 10:59: POC Glucose 160 H 07/02/23 12:35: POC Glucose 156 H 07/02/23 16:04: Hgb 9.9 L, Hct 29.7 L 07/02/23 17:17: POC Glucose 121 H 07/02/23 23:17: POC Glucose 124 H 07/03/23 06:10: WBC 6.0, RBC 3.36 L, Hgb 9.7 L, Hct 28.7 L, MCV 85.4, MCH 28.9, MCHC 33.8, RDW Std Deviation 40.9, RDW Coeff of Fly 13.2, Plt Count 220, MPV 9.5, Immature Gran % (Auto) 0.800, Neut % (Auto) 67.3, Lymph % (Auto) 18.2 L, [place] % (Auto) 9.4, Eos % (Auto) 3.8, Baso % (Auto) 0.5, Absolute Neuts (auto) 4.1, Absolute Lymphs (auto) 1.10, Nucleated RBC % 0, Sodium 138, Potassium 3.3 L, Chloride 108 H, Carbon Dioxide 24.0, Anion Gap 6, BUN 4 L, Creatinine 0.44 L, Estim Creat Clear Calc 123.28, Est GFR (MDRD) Af Amer 192, Est GFR (MDRD) Non-Af 158, BUN/Creatinine Ratio 9.2 L, Glucose 121 H, Calcium 8.0 L 07/03/23 06:18: POC Glucose 118 H Micro: Microbiology 06/29/23 18:55 Urine, Clean Catch Urine Culture - Final Culture exhibits no growth. Physical Exam Const oriented x3 and no apparent distress Resp normal respiratory effort GI soft to palpation Palpation: tender Assessment & Plan Assessment/Plan (1) Postoperative bleeding from incision: (2) Acute calculous cholecystitis: PLAN: Plan Patient's hemoglobin is stable. She appears much more comfortable than yesterday. I will start a diet today and decrease her IV fluids. If she tolerates a diet I will discharge her home this afternoon. Geovanny Harris MD Pager: [facility] [address] [place] [address], [address] [place] [address] Office:
--- NOTE | 2023-07-03 08:32 | PCM.DC.SUM ---
Providers Date of Admission: 07/02/23 Primary Care Physician: Dr. Blair Cheatham MD Reason For Visit: CHOLELITHIASIS Diagnosis Discharge Diagnosis (1) Postoperative bleeding from incision: Status: Acute (2) Acute calculous cholecystitis: Status: Acute Code(s): K80.00 - Calculus of gallbladder with acute cholecystitis without obstruction Plan Patient's hemoglobin is stable. She appears much more comfortable than yesterday. I will start a diet today and decrease her IV fluids. If she tolerates a diet I will discharge her home this afternoon. Geovanny Harris MD Pager: [facility] [address] [place] [address], [address] [place] [phone] Office: Medications at Discharge Home Medications albuterol sulfate 90 mcg/actuation aerosol inhaler (Ventolin HFA) 1 - 2 puff inhalation Q4H PRN PRN Wheezing 10/28/15 biotin 10,000 mcg capsule (Terrence Biotin) 10,000 mcg PO DAILY 10/28/15 cholecalciferol (vitamin D3) 25 mcg (1,000 unit) tablet (Vitamin D3) 1,000 unit PO DAILY 10/28/15 coenzyme Q10 100 mg capsule (Co Q-10) 100 mg PO DAILY 10/28/15 cyanocobalamin (vitamin B-12) 500 mcg tablet 1,500 mcg PO DAILY@0800 10/28/15 multivitamin (Daily Multiple tablet) 1 ea PO DAILY 10/28/15 zinc sulfate 50 mg zinc (220 mg) capsule 220 mg PO DAILY 10/28/15 atorvastatin 20 mg tablet 20 mg PO QHS 06/29/23 dicyclomine 20 mg tablet 20 mg PO Q6H PRN abdominal pain 06/29/23 levothyroxine 88 mcg tablet 88 mcg PO DAILY 06/29/23 sertraline 100 mg tablet 100 mg PO Q24H 06/29/23 hydroxyzine HCl 25 mg tablet 25 mg PO Q6H PRN anxiety 06/30/23 metformin 500 mg tablet,extended release 24 hr 500 mg PO BID 06/30/23 nitrofurantoin monohydrate/macrocrystals 100 mg capsule (Macrobid) 100 mg PO Q12H 5 days #10 caps 10/26/23 oxycodone-acetaminophen 5 mg-325 mg tablet 1 - 2 tab PO Q6H PRN pain 3 days #14 tabs 06/30/23 pantoprazole 40 mg tablet,delayed release 40 mg PO DAILY #30 tabs 06/30/23 Hospital Course Operations [email or web address] Summary of Care Provided Hospital Course: The patient was admitted with acute cholecystitis and taken for laparoscopic cholecystectomy. The following day unfortunately she started having increased abdominal pain and a CT scan showed a hematoma in the abdomen on the right lateral sidewall and the paracolic gutter. The patient was observed and hemoglobin was stable until the next morning where it dropped 2 g. At that point she was taken for surgery. Exploratory laparoscopy was used to washout the abdomen inspected. There is no active bleeding identified and everything was washed out. The port sites were cauterized and the patient was admitted back to the floor. The patient was kept n.p.o. and her hemoglobin was checked serially and it was stable through 3 draws. When she started passing gas she was started on a diet. Once tolerating gas discharged home. Weight / BMI Weight Weight: 195 lb 15.996 oz Body Mass Index (BMI) 33.4 ABG / Lab / Microbiology Data 07/03/23 06:10 07/03/23 06:10 Laboratory: Laboratory Results - last 24 hr 07/02/23 08:15: POC Glucose 165 H 07/02/23 10:29: WBC 6.7, RBC 3.21 L, Hgb 9.1 L, Hct 28.2 L, MCV 87.9, MCH 28.3, MCHC 32.3, RDW Std Deviation 42.5, RDW Coeff of Fly 13.3, Plt Count 230, MPV 9.5, Immature Gran % (Auto) 1.200 H, Neut % (Auto) 65.8, Lymph % (Auto) 20.6, [place] % (Auto) 9.2, Eos % (Auto) 2.4, Baso % (Auto) 0.8, Absolute Neuts (auto) 4.4, Absolute Lymphs (auto) 1.37, Nucleated RBC % 0, PT 14.9, INR 1.2, APTT 27.3, Sodium 141, Potassium 3.5, Chloride 110 H, Carbon Dioxide 25.0, Anion Gap 6, BUN 8, Creatinine 0.49 L, Estim Creat Clear Calc 110.70, Est GFR (MDRD) Af Amer 167, Est GFR (MDRD) Non-Af 138, BUN/Creatinine Ratio 16.3, Glucose 183 H, Calcium 7.4 L, Blood Type A NEGATIVE, Antibody Screen NEGATIVE, Crossmatch See Detail 07/02/23 10:59: POC Glucose 160 H 07/02/23 12:35: POC Glucose 156 H 07/02/23 16:04: Hgb 9.9 L, Hct 29.7 L 07/02/23 17:17: POC Glucose 121 H 07/02/23 23:17: POC Glucose 124 H 07/03/23 06:10: WBC 6.0, RBC 3.36 L, Hgb 9.7 L, Hct 28.7 L, MCV 85.4, MCH 28.9, MCHC 33.8, RDW Std Deviation 40.9, RDW Coeff of Fly 13.2, Plt Count 220, MPV 9.5, Immature Gran % (Auto) 0.800, Neut % (Auto) 67.3, Lymph % (Auto) 18.2 L, [place] % (Auto) 9.4, Eos % (Auto) 3.8, Baso % (Auto) 0.5, Absolute Neuts (auto) 4.1, Absolute Lymphs (auto) 1.10, Nucleated RBC % 0, Sodium 138, Potassium 3.3 L, Chloride 108 H, Carbon Dioxide 24.0, Anion Gap 6, BUN 4 L, Creatinine 0.44 L, Estim Creat Clear Calc 123.28, Est GFR (MDRD) Af Amer 192, Est GFR (MDRD) Non-Af 158, BUN/Creatinine Ratio 9.2 L, Glucose 121 H, Calcium 8.0 L 07/03/23 06:18: POC Glucose 118 H Microbiology: Microbiology 06/29/23 18:55 Urine, Clean Catch Urine Culture - Final Culture exhibits no growth. D/C Instructions Discharge Diet: Light diet - advance as tolerated Discharge Activity: May Shower Lifting Restrictions: 15 lbs for 2 weeks Call your doctor if your incision/area has: Continuous Slow Oozing, Sudden Increased Bleeding, Increased Pain/ Swelling, Increased Redness, Foul Smelling Discharge and Swelling at the incision site Call your doctor if you observe: Fever of 101 or Higher Cleanse incision/area with: Soap & Water Additional Dressing/Incision Instructions: Steri-Strips will fall off in 7 to 10 days, if they do not fall off okay to remove after 10 days. Please Follow Up With: Roxana Mohamud MD When: Call the office for a follow-up appointment 2 weeks; after 5 PM and on the weekends call [phone] with any concerns. Meaningful Use Info Meaningful Use Diagnoses (Choose all that apply): None applicable Discharge Plan Admission Admit Date/Time: 07/02/23 11:12 Attending Provider: Roxana Mohamud Primary Care Provider: Blair Cheatham Discharge Orders/Prescriptions Prescriptions: New oxycodone-acetaminophen 5-325 mg tablet 1 - 2 tab PO Q6H PRN (Reason: pain) 3 Days Qty: 14 0RF pantoprazole 40 mg tablet,delayed release (DR/EC) 40 mg PO DAILY Qty: 30 0RF nitrofurantoin monohyd/m-cryst [Macrobid] 100 mg capsule 100 mg PO Q12H 5 Days Qty: 10 0RF Rx Instructions: must administer with a meal/food Continued multivitamin [Daily Multiple] 1 EACH tablet 1 ea PO DAILY cyanocobalamin (vitamin B-12) 500 MCG tablet 1,500 mcg PO DAILY@0800 biotin [Terrence Biotin] 10,000 MCG capsule 10,000 mcg PO DAILY albuterol sulfate [Ventolin HFA] 1 INHALER inhaler 1 - 2 puff inhalation Q4H PRN PRN (Reason: Wheezing) coenzyme Q10 [Co Q-10] 100 MG capsule 100 mg PO DAILY zinc sulfate 220 MG capsule 220 mg PO DAILY cholecalciferol (vitamin D3) [Vitamin D3] 1,000 UNIT tablet 1,000 unit PO DAILY atorvastatin 20 mg tablet 20 mg PO QHS Patient Comments: Take 1 tablet by mouth daily at bedtime. For cholesterol. dicyclomine 20 mg tablet 20 mg PO Q6H PRN (Reason: abdominal pain) Patient Comments: Take 1 tablet (20 mg) by mouth 4 times a day before meals. levothyroxine 88 mcg tablet 88 mcg PO DAILY Patient Comments: TAKE 1 TABLET BY MOUTH DAILY before BREAKFAST sertraline 100 mg tablet 100 mg PO Q24H Patient Comments: Take 1 tablet by mouth once daily. hydroxyzine HCl 25 mg tablet 25 mg PO Q6H PRN (Reason: anxiety) Patient Comments: Take 1 tablet by mouth every 6 hours as needed for anxiety. Held metformin 500 mg tablet extended release 24 hr 500 mg PO BID Hold Instructions: 48 hr from IV contrast from CT a/p Patient Comments: Take 1 tablet by mouth twice daily. Discontinued Ranitidine [Zantac] 150 MG tablet 150 mg PO BID ciprofloxacin HCl 500 mg tablet 500 mg PO Q12H Patient Comments: Take 1 tablet (500 mg) by mouth 2 times a day for 7 days. metronidazole 500 mg tablet 500 mg PO Q12H Patient Comments: Take 1 tablet (500 mg) by mouth 2 times a day for 7 days. DO NOT TAKE WITH ALCOHOL Referrals / Follow Up: Blair Cheatham MD [Primary Care Provider] - Disposition Disposition (needs filled in before D/C Order can be placed): Home, Self Care
[2023-07-03] MEDS: Sertraline 100 MG Tablet PO (09:13)
[2023-07-03] MEDS: Nitrofurantoin Macrocrystals 100 MG Capsule PO ×2 (09:13→16:28)
[2023-07-03 09:15] VITALS: BP 150/93; PULSE 103; RESP 18; TEMP 36.7; O2SAT 97
[2023-07-03 12:01] LABS: Bedside Glucose 139 mg/dL (74-106)
[2023-07-03 15:15] VITALS: BP 141/90; PULSE 99; RESP 18; TEMP 36.3; O2SAT 95
[2023-07-03 16:14] VITALS: BP 141/90; PULSE 99; RESP 18; TEMP 36.3; O2SAT 95
[2023-07-03] MEDS: Insulin Lispro 100 UNIT/ML INSULN.PEN SC (16:28)
[2023-07-03 17:16] LABS: Bedside Glucose 153 mg/dL (74-106)
== END 2023-07-03 18:00 | disposition home or self-care (01) | DRG 908 ==
LOC: ED 20:38 → MS3 06-30 00:39 → MS2 06-30 01:48 → PCU 06-30 19:49
PROVIDERS: Surgery; Admitting Provider Surgery; Emergency Provider Emergency Medicine; PCP Family Medicine; Visit Provider Surgery
PROC: (CPT 47610; principal; 2023-06-30 14:40)
PROC: 0W3P3ZZ Control Bleeding in Gastrointestinal Tract, Percutaneous Approach (ICD-10-PCS; CPT 47610; principal; 2023-07-02 09:00)
DX: L76.32 Postprocedural hematoma of skin and subcutaneous tissue following other procedure (principal); K80.01 Calculus of gallbladder with acute cholecystitis with obstruction; E11.9 Type 2 diabetes mellitus without complications; E03.9 Hypothyroidism, unspecified; E78.00 Pure hypercholesterolemia, unspecified; E87.6 Hypokalemia; F41.1 Generalized anxiety disorder; K66.0 Peritoneal adhesions (postprocedural) (postinfection); Z90.710 Acquired absence of both cervix and uterus; Z79.84 Long term (current) use of oral hypoglycemic drugs; Z79.899 Other long term (current) drug therapy; Z83.79 Family history of other diseases of the digestive system
CPT/HCPCS: 36415; 71045; 74018; 74177; 76705; 80048; 80053; 80076; 81001; 82962; 83605; 83690; 85014; 85018; 85025; 85610; 85730; 86850; 86900; 86901; 86920; 86922; 87086; 88304; 93005; 94640; 94668; 99284; J7030; J7040; J7120; Q9967; A4216; J2405

== ENCOUNTER 2023-07-16 20:43 | Inpatient (IN) | payer OTHER, SELFPAY ==
--- NOTE | 2023-07-16 20:35 | HP.PCM.HOS_ITS ---
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 Harris of general surgery to treat acalculous cholecystitis with a subsequent postoperative hematoma that required evacuation who was transferred from [facility] ER complaining of abdominal pain, nausea, vomiting and diarrhea. Mrs. Whitfield reports her symptoms began approximately 1 day prior to admission when she woke up with the acute onset of excruciating right flank pain that was cramping and stabbing in nature, constant and woke her up screaming in bed for her son to come and help her (Sebastien, who is an EMT). She then took a Zofran and went to lay down and transiently improved with normal formed soft stools. She then ate some toast and began vomiting with pain worse than the pain that preceded her recent previous surgery. She also admits to diaphoresis from head to toe with chills and severe anxiety along with an indurated urticarial-type rash on the medial surface of her distal medial right biceps humerus area and she denies any recent contact dermatitis with no known trigger. She then had copious foul-smelling diarrhea shortly after her arrival at [facility] ER. She denies a history of C. difficile colitis but she does admit to recent antibiotic use not just with her surgery but for a UTI diagnosed prior to the surgery that was treated with Macrobid. In the ER at [facility] she was treated with Zosyn IV and vancomycin IV along with morphine sulfate and Zofran. Her CT scan of the abdomen pelvis revealed liquid stools on CT with a high-index of clinical suspicion for C. difficile colitis (versus other infectious colitis) with leukocytosis of 11.9 present on admission along with clinical evidence of intractable nausea, vomiting and abdominal pain and she was then admitted to the general medical floor for ongoing care for a stay that is expected to be greater than 48 hours. [facility] Medical History Cervical cancer Hyperlipidemia Hypothyroidism Home Medications albuterol sulfate 90 mcg/actuation aerosol inhaler (Ventolin HFA) 1 - 2 puff inhalation Q4H PRN PRN Wheezing 10/28/15 [History Last Taken 10/28/15 1 - 2 PUFF] biotin 10,000 mcg capsule (Terrence Biotin) 10,000 mcg PO DAILY nails and hair 10/28/15 [History Last Taken 07/16/23] cholecalciferol (vitamin D3) 25 mcg (1,000 unit) tablet (Vitamin D3) 1,000 unit PO DAILY vitamin 10/28/15 [History Last Taken 07/16/23] coenzyme Q10 100 mg capsule (Co Q-10) 100 mg PO DAILY vitamin 10/28/15 [History Last Taken 07/16/23] cyanocobalamin (vitamin B-12) 500 mcg tablet 1,500 mcg PO DAILY@0800 vitamin 10/28/15 [History Last Taken 07/16/23] multivitamin (Daily Multiple tablet) 1 ea PO DAILY vitamin 10/28/15 [History Last Taken 07/16/23] zinc sulfate 50 mg zinc (220 mg) capsule 220 mg PO DAILY vitamin 10/28/15 [History Last Taken 10/28/15 220 MG] atorvastatin 20 mg tablet 20 mg PO QHS hld 06/29/23 [History Last Taken 07/15/23] dicyclomine 20 mg tablet 20 mg PO Q6H PRN abdominal pain 06/29/23 [History Last Taken Unknown] levothyroxine 88 mcg tablet 88 mcg PO DAILY thyroid 06/29/23 [History Last Taken 07/16/23] sertraline 100 mg tablet 100 mg PO Q24H depression 06/29/23 [History Last Taken Unknown] hydroxyzine HCl 25 mg tablet 25 mg PO Q6H PRN anxiety 06/30/23 [History Last Taken Unknown] metformin 500 mg tablet,extended release 24 hr 500 mg PO BID diabetes 06/30/23 [History Last Taken Unknown] pantoprazole 40 mg tablet,delayed release 40 mg PO DAILY #30 tabs 06/30/23 [Rx Last Taken 07/16/23] oxycodone-acetaminophen 5 mg-325 mg tablet 1 tab PO Q6H PRN pain 3 days #15 tabs 07/04/23 [Rx Last Taken Unknown] acetaminophen 500 mg tablet (Acetaminophen Extra Strength) 1,000 mg PO BID PRN PRN pain 07/16/23 [History Last Taken 07/16/23] Allergy/AdvReac Type Severity Reaction Status Date / Time Anesthetics - Amide Type - AdvReac Severe confusion Verified 07/16/23 20:45 [facility] - Riri Type- AdvReac Severe Other Verified 07/16/23 20:45 Parabens Family History Other Anesth complication del [facility] Anesthesia complication Surgical History History of hysterectomy for cancer History of radical hysterectomy Social History household members: spouse Smoking Status: Never smoker ROS ROS Narrative Review of systems: Constitutional: Patient admits to chills and severe diaphoresis Eyes: Patient denies visual changes ENT: Patient denies sore throat or runny nose Cardiovascular: Patient denies chest pain or palpitations Respiratory: Patient denies shortness of breath or cough Gastrointestinal: Patient admits to severe abdominal pain and right flank pain with nausea, vomiting and nonbloody diarrhea Genitourinary: Patient denies dysuria, hematuria or urinary frequency Neurological: Patient denies focal neurologic deficits Hematologic: Patient denies easy bleeding or easy bruisability Endocrine: Patient denies polyuria, polydipsia or polyphagia Allergic: Patient does admit to an urticarial rash on the medial surface of her right distal biceps humerus area 14 point review systems otherwise negative except for positives noted above in HPI. Vital Signs Vital Signs Vital Signs: Vital signs noted and records. Physical Exam Const alert and oriented x3 Constitutional Narrative: Patient is anxious and clutching her right flank almost constantly. General Appearance: cooperative HEENT normocephalic, head/scalp atraumatic, hearing grossly normal bilaterally and moist oral mucous membranes HEENT Narrative: Oropharynx dry with tart breath. Eyes PERRL, EOMs intact bilaterally and conjunctivae normal Neck no lymphadenopathy, supple and no JVD Resp normal respiratory effort, no retractions, no use of accessory muscles and clear to auscultation bilaterally Cardio regular rate and regular rhythm GI GI Narrative: Right flank and abdomen are exquisitely tender to palpation with normal bowel sounds. Extremity full ROM Skin Skin Narrative: Patient has an indurated urticarial type rash in the distal her right medial biceps humerus is approximately 5 cm in diameter. Neuro oriented x3, CN's II-XII intact bilaterally, moves all extremities and no focal motor deficits Sensorium / Orientation: awake, alert, oriented to person, oriented to place and oriented to time Speech: speech normal Motor Exam: strength 5/5 throughout Psych Mood & Affect: anxious Results Medical Records Data Attestation: I reviewed the patient's medical records Lab / Micro Data Attestation: I reviewed the patient's lab results. 07/16/23 21:05 07/16/23 21:05 Assessment & Plan Assessment/Plan (1) Diarrhea: QUALIFIERS: Diarrhea type: presumed infectious Qualified Code(s): R19.7 - Diarrhea, unspecified (2) Recurrent upper abdominal pain with history of cholecystectomy: (3) Diabetes mellitus: QUALIFIERS: Diabetes mellitus complication status: with other spec ified complication Diabetes mellitus skilled nursing insulin use: without manager terminal use Diabetes mellitus type: type 2 Qualified Code(s): E11.69 - Type 2 diabetes mellitus with other specified complication PLAN: Plan 1. Acute diarrhea after recent laparoscopic cholecystectomy approximately 2 weeks ago complicated by postoperative hematoma requiring evacuation - Admit to general medical floor on enteric and contact precautions. Start empiric IV Flagyl 500 mg 3 times daily and oral vancomycin 125 mg p.o. every 6 hours scheduled. Check stool studies to confirm suspicion. Give Tylenol as needed for mild to moderate 1-5 pain or fever. Give morphine IV as needed for severe level 6-10 out of 10 pain. Finally, we will courtesy notify the general surgeon on-call at this patient has been admitted to they can be aware of her situation. 2. Severe right-sided abdominal pain and right flank pain with intractable nausea and vomiting complicating #1 in the setting of a strong family history of ulcerative colitis - Continue supportive care and monitor for improvement. If her symptoms persist and spite of conservative measures outlined above patient may require an MRI of her abdomen and pelvis to reassess. Finally, patient may require referral for GI consultation if she is suspected to have developed IBD. 3. Recent history of UTI approximately 1 week prior to her surgery with Macrobid - Noted. This is adding to the suspicion for possible C. difficile colitis due to the likely recent decrease in her normal colonic terrence. 4. Remote history of cervical cancer; status post radical hysterectomy - Apparently stable at this time. 5. Diabetes mellitus type 2; of unknown control - Keep on clear liquid diet for now. Fingerstick blood sugars Q AC/HS plus sliding scale insulin. Check hemoglobin A1c to assess quality of diabetic control. 6. Essential hypertension - Continue home medications as previous. Give IV hydralazine as needed for systolic blood pressure greater than 160 mmHg. 7. DVT prophylaxis - Lovenox 40 mg subcu daily. Total time: Approximately 55 minutes. Charges/Coding Visit Charges Inpatient E&M: 31605 Init Hosp L2
[2023-07-16 20:38] VITALS: BMI 32.5
[2023-07-16 20:44] VITALS: BP 133/84; PULSE 84; RESP 16; TEMP 37.2; O2SAT 98
[2023-07-16 21:21] LABS: Absolute Lymphocyte Count 1.89 X10^3/uL (0.83-4.51); Absolute Neutrophil Count 8.9 X10^3/uL (2.0-7.7); Basophil# 0.04 X10^3/uL; Basophil% 0.3 % (0-1); Eosinophil# 0.31 X10^3/uL; Eosinophils% 2.6 % (0-5); Hematocrit 34.7 % (37-47); Hemoglobin 11.5 g/dL (12.0-15.0); Lymphocyte # 1.89 X10^3/ul (0.83-4.51); Lymphocyte % 15.9 % (19-41); Mean Corp Hgb Conc 33.1 g/dL (32-36); Mean Corpuscular Hgb 28.7 pg (27.0-32.0); Mean Corpuscular Volume 86.5 fL (81-99); Mean Platelet Vol. 9.7 fl (6.2-12.0); Monocyte# 0.75 X10^3/uL; Monocyte% 6.3 % (0-10); NRBC Flagged by Analyzer 0 % (0-5); Neutrophil # 8.86 X10^3/uL (2.7-7.7); Neutrophil % 74.4 % (47-70); Platelet Count 313 K/mm3 (150-450); RBC Distribution Width CV 13.4 % (11.6-14.6); RBC Distribution Width SD 42.5 fl (35.1-43.9); Red Blood Count 4.01 M/mm3 (4.2-5.4); White Blood Count 11.9 K/mm3 (4.4-11.0)
[2023-07-16 21:39] LABS: ALB/GLOB Ratio 1.1 RATIO (0.9-2.4); AST(SGOT) 26 U/L (15-37); Alanine Aminotransfer ALT/SGPT 25 U/L (13-56); Albumin, Serum 3.5 g/dL (3.2-5.0); Alkaline Phosphatase 89 U/L (45-117); Anion Gap 4 (5-15); BUN 21 mg/dL (7-18); BUN/Creat Ratio 28.6 RATIO (10-20); Calcium,Total 8.1 mg/dL (8.5-10.1); Chloride 111 mmol/L (98-107); Creatinine, Serum 0.73 mg/dL (0.55-1.02); EST Glomerular Filtration Rate 87 mL/min (>60); Est Glom Filt Rate - Afr Amer 105 mL/min (>60); Estimated Creatinine Clearance 74.31 ml/min; Globulin 3.3 g/dL (2.2-4.2); Glucose 125 mg/dL (74-106); Magnesium 2.1 mg/dL (1.6-2.6); Potassium 3.9 mmol/L (3.5-5.1); Protein, Total 6.8 g/dL (6.4-8.2); Sodium Level 138 mmol/L (136-145)
[2023-07-16] MEDS: Atorvastatin Calcium 20 MG Tablet PO (22:25)
[2023-07-16] MEDS: KCL 20MEQ in 0.9% NS 20 MEQ/1,000 ML IV.SOLN. 150 MEQ IV (22:25)
[2023-07-16] MEDS: 0.9% Saline Lock 10 ML Syringe IV ×2 (22:25→23:03)
[2023-07-16] MEDS: metroNIDAZOLE 500 MG/100 ML BAG 100 MG IV (22:26)
[2023-07-16] MEDS: DiphenhydrAMINE 50 MG/ML Syringe 25 MG IV (23:03)
[2023-07-16] MEDS: MELATONIN 3 MG TABLET PO (23:06)
[2023-07-16] MEDS: Vancomycin 125 MG/5 ML Susp PO.SYRINGE PO (23:07)
[2023-07-16 23:10] VITALS: BP 140/76; PULSE 85; RESP 16; TEMP 36.8; O2SAT 99
[2023-07-17] VITALS (8 sets, daily range): BP systolic 122–149; BP diastolic 73–90; PULSE 76–82; RESP 18; TEMP 36.6–36.7; O2SAT 95–100; BMI 32.3
[2023-07-17] MEDS: Oxycodone/Apap 5/325 Tablet PO ×3 (00:56→21:59)
[2023-07-17] MEDS: 0.9% Saline Lock 10 ML Syringe IV ×3 (00:57→22:14)
[2023-07-17] MEDS: Ondansetron 4 MG/2 ML Vial IV ×3 (00:58→22:14)
[2023-07-17] MEDS: KCL 20MEQ in 0.9% NS 20 MEQ/1,000 ML IV.SOLN. 150 MEQ IV ×3 (05:04→18:44)
[2023-07-17] MEDS: metroNIDAZOLE 500 MG/100 ML BAG 100 MG IV (05:04)
[2023-07-17] MEDS: Vancomycin 125 MG/5 ML Susp PO.SYRINGE PO ×3 (05:05→17:37)
[2023-07-17] MEDS: Levothyroxine 88 MCG Tablet PO (05:16)
[2023-07-17 05:38] LABS: Absolute Lymphocyte Count 2.19 X10^3/uL (0.83-4.51); Absolute Neutrophil Count 5.4 X10^3/uL (2.0-7.7); Basophil# 0.05 X10^3/uL; Basophil% 0.6 % (0-1); Eosinophil# 0.53 X10^3/uL; Hematocrit 32.4 % (37-47); Hemoglobin 10.5 g/dL (12.0-15.0); Lymphocyte # 2.19 X10^3/ul (0.83-4.51); Mean Corp Hgb Conc 32.4 g/dL (32-36); Mean Corpuscular Hgb 28.5 pg (27.0-32.0); Mean Platelet Vol. 9.9 fl (6.2-12.0); Monocyte# 0.56 X10^3/uL; Monocyte% 6.4 % (0-10); NRBC Flagged by Analyzer 0 % (0-5); Neutrophil % 61.5 % (47-70); Platelet Count 273 K/mm3 (150-450); RBC Distribution Width CV 13.6 % (11.6-14.6); RBC Distribution Width SD 43.9 fl (35.1-43.9); Red Blood Count 3.68 M/mm3 (4.2-5.4); White Blood Count 8.8 K/mm3 (4.4-11.0)
[2023-07-17 06:12] LABS: ALB/GLOB Ratio 0.9 RATIO (0.9-2.4); AST(SGOT) 16 U/L (15-37); Alanine Aminotransfer ALT/SGPT 23 U/L (13-56); Albumin, Serum 3.1 g/dL (3.2-5.0); Alkaline Phosphatase 82 U/L (45-117); Anion Gap 6 (5-15); BUN 16 mg/dL (7-18); BUN/Creat Ratio 24.8 RATIO (10-20); Calcium,Total 7.8 mg/dL (8.5-10.1); Chloride 111 mmol/L (98-107); Creatinine, Serum 0.64 mg/dL (0.55-1.02); EST Glomerular Filtration Rate 101 mL/min (>60); Est Glom Filt Rate - Afr Amer 122 mL/min (>60); Estimated Creatinine Clearance 84.76 ml/min; Globulin 3.4 g/dL (2.2-4.2); Glucose 125 mg/dL (74-106); Magnesium 2.1 mg/dL (1.6-2.6); Phosphorus 3.3 mg/dL (2.5-4.9); Potassium 4.1 mmol/L (3.5-5.1); Protein, Total 6.5 g/dL (6.4-8.2); Sodium Level 139 mmol/L (136-145); Thyroid Stim Hormone (TSH) 3.91 uIU/mL (0.358-3.74)
[2023-07-17] MEDS: Cyanocobalamin 500 MCG Tablet 1500 MCG PO (08:31)
[2023-07-17] MEDS: Multivitamins,Therapeutic Tablet 1 TABLET PO (08:31)
[2023-07-17] MEDS: Cholecalciferol (VIT D3) 25 MCG TABLET (1,000 UNITS) PO (10:39)
[2023-07-17] MEDS: Pantoprazole Sodium 40 MG Tablet PO (10:39)
[2023-07-17] MEDS: Zinc Sulfate 50 mg zinc (220 mg) ORAL capsule PO (10:39)
[2023-07-17] MEDS: Sertraline 100 MG Tablet PO (10:40)
--- NOTE | 2023-07-17 10:45 | PN.HOSP_ITS ---
Reason for Visit Reason for Visit: Diagnoses Type 2 diabetes mellitus with other specified complication (07/16/23) Upper abdominal pain, unspecified (07/16/23) Diarrhea, unspecified (07/16/23) Acquired absence of other specified parts of digestive tract (07/16/23) Subjective Subjective Patient was seen and examined today, she had no abdominal discomfort earlier this morning, I transitioned her over to a soft diet and she had some abdominal discomfort after eating. Patient's stool was positive for C. difficile antigen but not toxin. Since the patient is having diarrhea, I have elected to treat her for a C. difficile infection. Objective Data Objective Data Vital Signs: Vital Signs Temp Pulse Resp BP Pulse Ox O2 Del Method 98 F 80 18 138/80 H 100 Room Air 07/17/23 10:30 07/17/23 10:30 07/17/23 10:30 07/17/23 10:30 07/17/23 10:30 07/17/23 10:30 Oxygen Delivery Method Room Air Weight: 86 kg Body Mass Index (BMI) 32.3 Intake & Output: Intake and Output for Last 24 Hours 07/15/23 07/16/23 07/17/23 23:59 23:59 23:59 Intake Total 100 / 100 1097.5 / 1097.5 Balance 100 / 100 1097.5 / 1097.5 Lab / Micro Data 07/17/23 05:00 07/17/23 05:00 Labs: Laboratory Results - last 24 hr 07/16/23 21:05: WBC 11.9 H, RBC 4.01 L, Hgb 11.5 L, Hct 34.7 L, MCV 86.5, MCH 28.7, MCHC 33.1, RDW Std Deviation 42.5, RDW Coeff of Fly 13.4, Plt Count 313, MPV 9.7, Immature Gran % (Auto) 0.500, Neut % (Auto) 74.4 H, Lymph % (Auto) 15.9 L, [place] % (Auto) 6.3, Eos % (Auto) 2.6, Baso % (Auto) 0.3, Absolute Neuts (auto) 8.9 H, Absolute Lymphs (auto) 1.89, Nucleated RBC % 0, Sodium 138, Potassium 3.9, Chloride 111 H, Carbon Dioxide 23.0, Anion Gap 4 L, BUN 21 H, Creatinine 0.73, Estim Creat Clear Calc 74.31, Est GFR (MDRD) Af Amer 105, Est GFR (MDRD) Non-Af 87, BUN/Creatinine Ratio 28.6 H, Glucose 125 H, Calcium 8.1 L, Magnesium 2.1, Total Bilirubin 0.80, AST 26, ALT 25, Alkaline Phosphatase 89, Total Protein 6.8, Albumin 3.5, Globulin 3.3, Albumin/Globulin Ratio 1.1 07/17/23 05:00: WBC 8.8, RBC 3.68 L, Hgb 10.5 L, Hct 32.4 L, MCV 88.0, MCH 28.5, MCHC 32.4, RDW Std Deviation 43.9, RDW Coeff of Fly 13.6, Plt Count 273, MPV 9.9, Immature Gran % (Auto) 0.500, Neut % (Auto) 61.5, Lymph % (Auto) 25.0, [place] % (Auto) 6.4, Eos % (Auto) 6.0 H, Baso % (Auto) 0.6, Absolute Neuts (auto) 5.4, Absolute Lymphs (auto) 2.19, Nucleated RBC % 0, Sodium 139, Potassium 4.1, Chloride 111 H, Carbon Dioxide 22.0, Anion Gap 6, BUN 16, Creatinine 0.64, Estim Creat Clear Calc 84.76, Est GFR (MDRD) Af Amer 122, Est GFR (MDRD) Non-Af 101, BUN/Creatinine Ratio 24.8 H, Glucose 125 H, Calcium 7.8 L, Phosphorus 3.3, Magnesium 2.1, Total Bilirubin 0.70, AST 16, ALT 23, Alkaline Phosphatase 82, Total Protein 6.5, Albumin 3.1 L, Globulin 3.4, Albumin/Globulin Ratio 0.9, TSH 3.91 H Micro: Microbiology 07/17/23 00:48 Stool Enteric Bacteriology - Final 07/17/23 00:48 Stool C. difficile GDH Antigen & Toxins - Final 07/17/23 00:48 Stool C. difficile DNA Amplification - Final Physical Exam Const alert, oriented x3 and no apparent distress General Appearance: cooperative, well kempt and well developed Orientation / Consciousness: awake, oriented to person, oriented to place and oriented to time HEENT normocephalic, head/scalp atraumatic and moist oral mucous membranes Eyes PERRL, EOMs intact bilaterally and conjunctivae normal Neck supple, no JVD, thyroid normal and no carotid bruits General: trachea midline Resp normal respiratory effort, no retractions, no use of accessory muscles and clear to auscultation bilaterally Auscultation: Negative for rales, rhonchi or wheezes Cardio regular rate, regular rhythm, S1 normal heart sound, S2 normal heart sound, no murmurs, no rub and no gallops GI normal to inspection, nondistended, normoactive bowel sounds, soft to palpation and non-distended Extremity no clubbing, cyanosis or edema Skin no rashes or lesions noted General Skin Exam: no breakdown Neuro oriented x3, CN's II-XII intact bilaterally, no focal motor deficits and no sensory deficits noted Sensorium / Orientation: awake, alert, oriented to person, oriented to place and oriented to time Speech: speech normal Psych affect normal Assessment & Plan Assessment/Plan (1) Recurrent upper abdominal pain with history of cholecystectomy: PLAN: Plan 1. Abdominal pain secondary to suspected C. difficile infection-patient was placed on p.o. vancomycin, I will continue to give IV fluids #2 status post cholecystectomy 06/30/2023, I do not feel is necessary to have surgery see the patient #3 chronic depression-patient will remain on her antidepressants #4 hypothyroidism-patient is on Synthroid #5 hyperlipidemia-patient is on atorvastatin #6 type 2 diabetes-I do not feel the patient needs routine fingerstick blood sugars, she is off metformin due to her recent CT Total clinical time spent by myself addressing patient's medical issues, reviewing all of her data, and collaborating with patient's care team: 35 minutes Charges/Coding Visit Charges Inpatient E&M: 19238 Subs Hosp L2
[2023-07-17] MEDS: Acetaminophen 325 MG Tablet 650 MG PO ×2 (10:46→17:38)
[2023-07-17] MEDS: DiphenhydrAMINE 50 MG/ML Syringe 25 MG IV (21:57)
[2023-07-17] MEDS: MELATONIN 3 MG TABLET PO (21:59)
[2023-07-17] MEDS: Atorvastatin Calcium 20 MG Tablet PO (21:59)
[2023-07-18] MEDS: Vancomycin 125 MG/5 ML Susp PO.SYRINGE PO ×5 (00:08→23:22)
[2023-07-18] MEDS: KCL 20MEQ in 0.9% NS 20 MEQ/1,000 ML IV.SOLN. 150 MEQ IV ×4 (00:09→23:21)
[2023-07-18 00:11] VITALS: BP 138/88; PULSE 75; RESP 18; TEMP 36.6; O2SAT 97
[2023-07-18 02:56] VITALS: BP 144/91; PULSE 75; RESP 18; TEMP 36.4; O2SAT 98
[2023-07-18 02:57] VITALS: BMI 32.1
[2023-07-18] MEDS: Levothyroxine 88 MCG Tablet PO (06:12)
[2023-07-18] MEDS: Acetaminophen 325 MG Tablet 650 MG PO (06:17)
[2023-07-18 06:19] VITALS: BP 132/77; PULSE 73; RESP 18; TEMP 36.6; O2SAT 99
[2023-07-18 08:08] VITALS: O2SAT 96
[2023-07-18 09:55] VITALS: BP 135/89; PULSE 84; RESP 16; TEMP 36.9; O2SAT 98
[2023-07-18] MEDS: Pantoprazole Sodium 40 MG Tablet PO (10:13)
[2023-07-18] MEDS: Sertraline 100 MG Tablet PO (10:13)
[2023-07-18] MEDS: Oxycodone/Apap 5/325 Tablet PO ×2 (10:21→20:57)
--- NOTE | 2023-07-18 13:56 | CASEMGMT ---
FELICITY SANTO Readmission Note Previous Admission: 07/02/23-07/03/23 Diagnosis: acute cholecystitis DC Disposition: Home Current Admission: Admitted 07/16/23 Current Diagnosis: abd pain with diarrhea after recent choley Pt had lap choley for acute cholecystitis and the following day CT showed hematoma. Pt was observed and the following day had a 2 point drop in Hgb. Pt was taken for exp lap with washout. No active bleeding and hgb were stable, pt tolerated a diet and was dc'd home. Pt presented to [facility] ER with abd pain, diarrhea and was trf'd to [facility]. Pt with positive cdiff antigen but negative toxin. Pt being treated for cdiff. RN GAL into pt room, pt states that she did berry picker her medications and had been taking as ordered. Pt was scheduled a follow up appt with the surgeon today and she has reschedule this. Pt denies any homegoing needs, pt reports she is a nurse. Pt did have questions regarding her insurance but will contact the HR for the company she works for. Pt reports her son is an EMT. DC PLAN:Home
--- NOTE | 2023-07-18 16:03 | PCM.PN.HOSP ---
Reason for Visit Reason for Visit: Diagnoses Type 2 diabetes mellitus with other specified complication (07/16/23) Upper abdominal pain, unspecified (07/16/23) Diarrhea, unspecified (07/16/23) Acquired absence of other specified parts of digestive tract (07/16/23) Subjective Subjective Patient seen at bedside today. Patient laying comfortably in bed, conversing normally, no acute distress. Patient does report mild right-sided lower abdominal pain and right flank pain this morning. States her pain remains much improved from admission, however she felt like her pain was better yesterday and has worsened slightly since then. She was able to tolerate p.o. intake yesterday, has not tried eating yet this morning. She reports 3 episodes of diarrhea this morning but feels like the stool is more formed than it was on admission. She denies any fevers or chills. No other acute concerns this time. Objective Data Objective Data Vital Signs: Vital Signs Temp Pulse Resp BP Pulse Ox O2 Del Method 98.4 F 84 16 135/89 H 98 Room Air 07/18/23 09:55 07/18/23 09:55 07/18/23 09:55 07/18/23 09:55 07/18/23 09:55 07/18/23 09:55 Oxygen Delivery Method Room Air Weight: 85.4 kg Body Mass Index (BMI) 32.1 Intake & Output: Intake and Output for Last 24 Hours 07/16/23 07/17/23 07/18/23 23:59 23:59 23:59 Intake Total 100 / 100 3917.5 / 3917.5 2232.5 / 2232.5 Balance 100 / 100 3917.5 / 3917.5 2232.5 / 2232.5 Lab / Micro Data 07/17/23 05:00 07/17/23 05:00 Micro: Microbiology 07/17/23 00:48 Stool Stool Lactoferrin - Final 07/17/23 00:48 Stool Enteric Bacteriology - Final 07/17/23 00:48 Stool C. difficile GDH Antigen & Toxins - Final 07/17/23 00:48 Stool C. difficile DNA Amplification - Final Physical Exam Const alert, oriented x3, no apparent distress, healthy appearing and well nourished Constitutional Narrative: Obese. General Appearance: cooperative and comfortable HEENT normocephalic, head/scalp atraumatic, hearing grossly normal bilaterally, nasal mucous membranes and turbinates normal and moist oral mucous membranes Eyes PERRL, EOMs intact bilaterally and conjunctivae normal Neck full ROM, no lymphadenopathy and supple Lymph Lymphatic: no lymphadenopathy noted Chest inspection of chest normal Resp normal respiratory effort, normal air movement, no use of accessory muscles and clear to auscultation bilaterally Cardio regular rate, regular rhythm, no murmurs and peripheral pulses 2+ throughout GI normal to inspection, nondistended, normoactive bowel sounds, soft to palpation and non-distended GI Narrative: Mild tenderness to palpation in right flank region. Back/Spine normal ROM Extremity normal to inspection, full ROM and no pedal edema Skin no rashes or lesions noted Psych mental status grossly normal Assessment & Plan Assessment/Plan (1) Recurrent upper abdominal pain with history of cholecystectomy: (2) Diarrhea: QUALIFIERS: Diarrhea type: presumed infectious Qualified Code(s): R19.7 - Diarrhea, unspecified PLAN: Plan Patient is a 57-year-old female who presented to [facility] as a transfer from outside ED for abdominal pain, nausea/vomiting and diarrhea. 1. Abdominal pain Seems most likely secondary to suspected C. difficile infection as noted below. Very low concern for any postoperative complications after recent cholecystectomy. CT abdomen pelvis at outside ED showed liquid stools with a high index of clinical suspicion for C. difficile colitis. Labs at outside ED showed mildly cytosis of 11.9. ? Treating C. difficile infection as noted below. Conservative pain management for abdominal pain. Encouraging patient to increase p.o. intake as able. 2. Suspected C. difficile infection CT abdomen pelvis from outside ED as noted above. Infectious work-up on 07/17 showed positive C. difficile antigen, negative C. difficile toxin. Enteric pathogen stool panel negative, fecal WBC count normal. Patient notably reported recent antibiotic use post cholecystectomy as well as for recent UTI. ? Given high clinical suspicion for C. difficile, p.o. vancomycin was initiated on 07/17. We will plan to complete 10-day course. 3. Recent cholecystectomy ? S/p cholecystectomy with general surgery (Dr. Harris) at [facility] on 07/01. Patient tolerated procedure well, no immediate postop complications. No need for general surgery evaluation at this time, outpatient follow-up as needed. Chronic medical conditions: ? Depression: Stable. Continue home sertraline. ? Hypothyroidism: Continue home Synthroid. ? Hyperlipidemia: Continue home statin. ? Type 2 diabetes: On metformin 500 mg daily at home. No need for sliding scale insulin at this time. ? Obesity: BMI 32. Encouraged lifestyle modifications. DVT prophylaxis: Lovenox CODE STATUS: Full code, verified Expected disposition: Home, tomorrow Total clinical time spent by myself addressing the patient's medical issues, reviewing all the data, and collaborating with patient's care team: 35 minutes. Charges/Coding Visit Charges Inpatient E&M: 59263 Subs Hosp L2
[2023-07-18] MEDS: Ondansetron 4 MG/2 ML Vial IV (16:36)
[2023-07-18] MEDS: 0.9% Saline Lock 10 ML Syringe IV ×2 (16:37→20:57)
[2023-07-18 20:51] VITALS: BP 158/90; PULSE 81; RESP 18; TEMP 36.2; O2SAT 98
[2023-07-18] MEDS: Atorvastatin Calcium 20 MG Tablet PO (20:56)
[2023-07-18] MEDS: DiphenhydrAMINE 50 MG/ML Syringe 25 MG IV (20:58)
[2023-07-19 05:21] VITALS: BP 149/95; PULSE 81; RESP 18; TEMP 36.6; O2SAT 100
[2023-07-19] MEDS: KCL 20MEQ in 0.9% NS 20 MEQ/1,000 ML IV.SOLN. 150 MEQ IV (05:23)
[2023-07-19] MEDS: Vancomycin 125 MG/5 ML Susp PO.SYRINGE PO ×2 (05:24→11:43)
[2023-07-19] MEDS: Levothyroxine 88 MCG Tablet PO (05:24)
[2023-07-19 10:27] VITALS: BP 152/89; PULSE 90; RESP 16; TEMP 36.8; O2SAT 99
[2023-07-19] MEDS: Pantoprazole Sodium 40 MG Tablet PO (10:38)
[2023-07-19] MEDS: Sertraline 100 MG Tablet PO (10:38)
--- NOTE | 2023-07-19 14:04 | DCINST_ITS ---
Discharge Instructions Diet Discharge Diet: No restrictions Activity Discharge Activity: Return to Normal Activity Weight Bearing Status: Full weight bearing Follow Up Care Please Follow Up With: Blair Cheatham MD When: As needed Test Results: Test results from this visit will be discussed in further detail at your follow- up appointment, if applicable. Pending Tests Upon Discharge: None Discharge Plan Admission Admit Date/Time: 07/16/23 20:43 Primary Reason for Your Visit: Abdominal pain Attending Provider: Micah Reese Primary Care Provider: Blair Cheatham Consulting Providers: Arun Reese; Fred Smith Instructions Additional Instructions / Restrictions: Please take the following medications as prescribed: ? Oral vancomycin 4 times daily for 7 days, to complete treatment of your C. difficile infection ? Percocet 1 tab every 6 hours as needed for 5 days, for recurrent abdominal pain Continue all other home medications as previously prescribed. Follow-up with your primary care doctor as needed. Follow-up with your surgeon as needed. Discharge Orders/Prescriptions Prescriptions: New oxycodone-acetaminophen 5-325 mg Tablet 1 tab PO Q6H PRN PRN (Reason: Pain 6-10 out of 10) 5 Days Qty: 20 0RF vancomycin [Firvanq] 25 mg/mL Recon Soln 125 mg PO Q6 7 Days Qty: 140 0RF Continued multivitamin [Daily Multiple] 1 EACH tablet 1 ea PO DAILY cyanocobalamin (vitamin B-12) 500 MCG tablet 1,500 mcg PO DAILY@0800 biotin [Terrence Biotin] 10,000 MCG capsule 10,000 mcg PO DAILY albuterol sulfate [Ventolin HFA] 1 INHALER inhaler 1 - 2 puff inhalation Q4H PRN PRN (Reason: Wheezing) coenzyme Q10 [Co Q-10] 100 MG capsule 100 mg PO DAILY zinc sulfate 220 MG capsule 220 mg PO DAILY Patient Comments: only when she has a cold cholecalciferol (vitamin D3) [Vitamin D3] 1,000 UNIT tablet 1,000 unit PO DAILY atorvastatin 20 mg tablet 20 mg PO QHS Patient Comments: Take 1 tablet by mouth daily at bedtime. For cholesterol. dicyclomine 20 mg tablet 20 mg PO Q6H PRN (Reason: abdominal pain) Patient Comments: Take 1 tablet (20 mg) by mouth 4 times a day before meals. levothyroxine 88 mcg tablet 88 mcg PO DAILY Patient Comments: TAKE 1 TABLET BY MOUTH DAILY before BREAKFAST sertraline 100 mg tablet 100 mg PO Q24H Patient Comments: Take 1 tablet by mouth once daily. hydroxyzine HCl 25 mg tablet 25 mg PO Q6H PRN (Reason: anxiety) Patient Comments: Take 1 tablet by mouth every 6 hours as needed for anxiety. metformin 500 mg tablet extended release 24 hr 500 mg PO BID Hold Instructions: 48 hr from IV contrast from CT a/p Patient Comments: Take 1 tablet by mouth twice daily. pantoprazole 40 mg tablet,delayed release (DR/EC) 40 mg PO DAILY Qty: 30 0RF acetaminophen [Acetaminophen Extra Strength] 500 mg tablet 1,000 mg PO BID PRN PRN (Reason: pain) No Action oxycodone-acetaminophen 5-325 mg tablet 1 tab PO Q6H PRN (Reason: pain) 3 Days Qty: 15 0RF Referrals / Follow Up: Blair Cheatham MD [Primary Care Provider] - Disposition Disposition (needs filled in before D/C Order can be placed): Home, Self Care
--- NOTE | 2023-07-19 14:09 | DS.PCM_ITS ---
Providers Date of Admission: 07/16/23 Date of Discharge: 07/19/23 Primary Care Physician: Dr. Blair Cheatham MD Reason For Visit: ABDOMINAL PAIN WITH DIARRHEA AFTER RECENT CHOLECYS Diagnosis Discharge Diagnosis (1) Recurrent upper abdominal pain with history of cholecystectomy: Status: Acute Code(s): R10.10 - Upper abdominal pain, unspecified; Z90.49 - Acquired absence of other specified parts of digestive tract (2) Diarrhea: Status: Acute Code(s): R19.7 - Diarrhea, unspecified Qualifiers: Diarrhea type: presumed infectious Qualified Code(s): R19.7 - Diarrhea, unspecified Medications at Discharge Home Medications albuterol sulfate 90 mcg/actuation aerosol inhaler (Ventolin HFA) 1 - 2 puff inhalation Q4H PRN PRN Wheezing 10/28/15 biotin 10,000 mcg capsule (Terrence Biotin) 10,000 mcg PO DAILY nails and hair 10/28/15 cholecalciferol (vitamin D3) 25 mcg (1,000 unit) tablet (Vitamin D3) 1,000 unit PO DAILY vitamin 10/28/15 coenzyme Q10 100 mg capsule (Co Q-10) 100 mg PO DAILY vitamin 10/28/15 cyanocobalamin (vitamin B-12) 500 mcg tablet 1,500 mcg PO DAILY@0800 vitamin 10/28/15 multivitamin (Daily Multiple tablet) 1 ea PO DAILY vitamin 10/28/15 zinc sulfate 50 mg zinc (220 mg) capsule 220 mg PO DAILY vitamin 10/28/15 atorvastatin 20 mg tablet 20 mg PO QHS hld 06/29/23 dicyclomine 20 mg tablet 20 mg PO Q6H PRN abdominal pain 06/29/23 levothyroxine 88 mcg tablet 88 mcg PO DAILY thyroid 06/29/23 sertraline 100 mg tablet 100 mg PO Q24H depression 06/29/23 hydroxyzine HCl 25 mg tablet 25 mg PO Q6H PRN anxiety 06/30/23 metformin 500 mg tablet,extended release 24 hr 500 mg PO BID diabetes 06/30/23 pantoprazole 40 mg tablet,delayed release 40 mg PO DAILY #30 tabs 06/30/23 oxycodone-acetaminophen 5 mg-325 mg tablet 1 tab PO Q6H PRN pain 3 days #15 tabs 07/04/23 acetaminophen 500 mg tablet (Acetaminophen Extra Strength) 1,000 mg PO BID PRN PRN pain 07/16/23 oxycodone-acetaminophen 5 mg-325 mg tablet 1 tab PO Q6H PRN PRN Pain 6-10 out of 10 5 days #20 tabs 07/19/23 vancomycin 25 mg/mL oral solution (Firvanq) 125 mg (5 mL) PO Q6 7 days #140 mL 07/19/23 Hospital Course Operations None Procedures - Summary of Care Provided Minutes Spent on Discharge: 35 Hospital Course: Patient is a 57-year-old female who presented to [facility] as a transfer from outside ED for abdominal pain, nausea/vomiting and diarrhea. Hospital course as noted below. Abdominal pain: See most likely secondary to C. difficile infection as noted below. Had very low concern for any postoperative complications after recent cholecystectomy. CT abdomen pelvis at outside ED showed liquid stools with a high index of clinical suspicion for C. difficile colitis. Labs at outside ED showed mildly leukocytosis of 11.9 which resolved during admission. Patient was treated for C. difficile infection during admission as noted below with improvement in diarrhea and abdominal pain. Did have intermittent right-sided abdominal and flank pain during admission that was improved with low-dose opiates. Was tolerating p.o. take for several days prior to discharge. ? We will complete treatment of C. difficile infection as noted below. Provided patient with short course of Percocet for pain on discharge, encouraged her to use only as needed. Presumed C. difficile infection: CT abdomen pelvis from outside ED as noted above. Infectious work-up on 07/17 showed positive C. difficile antigen, negative C. difficile toxin. Enteric pathogen stool panel negative, fecal WBC count normal. Patient notably reported recent antibiotic use post cholecystectomy as well as for recent UTI. Given high clinical suspicion for C. difficile, p.o. vancomycin was initiated on 07/17. Patient had significant improvement of diarrhea after starting vancomycin. Also had improvement of her abdominal pain as noted above. ? Patient will complete 10-day course of p.o. vancomycin on discharge, stop date of 07/26. Recent cholecystectomy: S/p cholecystectomy with general surgery (Dr. Harris) at [facility] on 07/01. Patient tolerated procedure well, no immediate postop complications. Was felt that patient's abdominal pain was not related to her recent cholecystectomy. CT abdomen pelvis as noted above with no evidence of postoperative complications. Did not require general surgery evaluation while inpatient, okay for outpatient follow-up with general surgery as previously scheduled. Discharge diagnoses: ? Abdominal pain, improved ? Presumed C. difficile infection ? Recent cholecystectomy ? Depression ? Hypothyroidism ? Hyperlipidemia ? Type 2 diabetes ? Obesity Total clinical time spent by myself addressing the patient's discharge needs: 35 minutes. Physical Exam Const alert, oriented x3, no apparent distress, healthy appearing and well nourished Constitutional Narrative: Pleasant middle-age female, obese, sitting comfortably bedside chair, conversing normally, no acute distress. General Appearance: cooperative and comfortable HEENT normocephalic, head/scalp atraumatic, hearing grossly normal bilaterally, nasal mucous membranes and turbinates normal and moist oral mucous membranes Eyes PERRL, EOMs intact bilaterally and conjunctivae normal Neck full ROM, no lymphadenopathy and supple Lymph Lymphatic: no lymphadenopathy noted Chest inspection of chest normal Resp normal respiratory effort, normal air movement, no use of accessory muscles and clear to auscultation bilaterally Cardio regular rate, regular rhythm, no murmurs and peripheral pulses 2+ throughout GI normal to inspection, nondistended, normoactive bowel sounds, soft to palpation and non-distended GI Narrative: Mild tenderness to palpation in right flank region. Back/Spine normal ROM Extremity normal to inspection, full ROM and no pedal edema Skin no rashes or lesions noted Psych mental status grossly normal Weight / BMI Weight Weight: 85.4 kg Body Mass Index (BMI) 32.1 ABG / Lab / Microbiology Data 07/17/23 05:00 07/17/23 05:00 Microbiology: Microbiology 07/17/23 00:48 Stool Stool Lactoferrin - Final 07/17/23 00:48 Stool Enteric Bacteriology - Final 07/17/23 00:48 Stool C. difficile GDH Antigen & Toxins - Final 07/17/23 00:48 Stool C. difficile DNA Amplification - Final D/C Instructions Discharge Diet: No restrictions Weight Bearing Status: Full weight bearing Pending Tests Upon Discharge: None Please Follow Up With: Blair Cheatham MD When: As needed Meaningful Use Info Meaningful Use Diagnoses (Choose all that apply): None applicable Discharge Plan Admission Admit Date/Time: 07/16/23 20:43 Primary Reason for Your Visit: Abdominal pain Attending Provider: Micah Reese Primary Care Provider: Blair Cheatham Consulting Providers: Arun Reese; Fred Smith Instructions Additional Instructions / Restrictions: Please take the following medications as prescribed: ? Oral vancomycin 4 times daily for 7 days, to complete treatment of your C. difficile infection ? Percocet 1 tab every 6 hours as needed for 5 days, for recurrent abdominal pain Continue all other home medications as previously prescribed. Follow-up with your primary care doctor as needed. Follow-up with your surgeon as needed. Discharge Orders/Prescriptions Prescriptions: New oxycodone-acetaminophen 5-325 mg Tablet 1 tab PO Q6H PRN PRN (Reason: Pain 6-10 out of 10) 5 Days Qty: 20 0RF vancomycin [Firvanq] 25 mg/mL Recon Soln 125 mg PO Q6 7 Days Qty: 140 0RF Continued multivitamin [Daily Multiple] 1 EACH tablet 1 ea PO DAILY cyanocobalamin (vitamin B-12) 500 MCG tablet 1,500 mcg PO DAILY@0800 biotin [Terrence Biotin] 10,000 MCG capsule 10,000 mcg PO DAILY albuterol sulfate [Ventolin HFA] 1 INHALER inhaler 1 - 2 puff inhalation Q4H PRN PRN (Reason: Wheezing) coenzyme Q10 [Co Q-10] 100 MG capsule 100 mg PO DAILY zinc sulfate 220 MG capsule 220 mg PO DAILY Patient Comments: only when she has a cold cholecalciferol (vitamin D3) [Vitamin D3] 1,000 UNIT tablet 1,000 unit PO DAILY atorvastatin 20 mg tablet 20 mg PO QHS Patient Comments: Take 1 tablet by mouth daily at bedtime. For cholesterol. dicyclomine 20 mg tablet 20 mg PO Q6H PRN (Reason: abdominal pain) Patient Comments: Take 1 tablet (20 mg) by mouth 4 times a day before meals. levothyroxine 88 mcg tablet 88 mcg PO DAILY Patient Comments: TAKE 1 TABLET BY MOUTH DAILY before BREAKFAST sertraline 100 mg tablet 100 mg PO Q24H Patient Comments: Take 1 tablet by mouth once daily. hydroxyzine HCl 25 mg tablet 25 mg PO Q6H PRN (Reason: anxiety) Patient Comments: Take 1 tablet by mouth every 6 hours as needed for anxiety. metformin 500 mg tablet extended release 24 hr 500 mg PO BID Hold Instructions: 48 hr from IV contrast from CT a/p Patient Comments: Take 1 tablet by mouth twice daily. pantoprazole 40 mg tablet,delayed release (DR/EC) 40 mg PO DAILY Qty: 30 0RF acetaminophen [Acetaminophen Extra Strength] 500 mg tablet 1,000 mg PO BID PRN PRN (Reason: pain) No Action oxycodone-acetaminophen 5-325 mg tablet 1 tab PO Q6H PRN (Reason: pain) 3 Days Qty: 15 0RF Referrals / Follow Up: Blair Cheatham MD [Primary Care Provider] - Disposition Disposition (needs filled in before D/C Order can be placed): Home, Self Care Charges/Coding Visit Charges Inpatient E&M: 60784 Disch Hosp >30min
--- NOTE | 2023-07-19 14:49 | PHA.DC.MR.R ---
Pharmacy [place] Med Reconciliation Pharmacy Service has performed discharge medication reconciliation for this patient. The patient's discharge medication list was reviewed for discrepancies and discrepancies were resolved. Medications at Discharge Home Medications albuterol sulfate 90 mcg/actuation aerosol inhaler (Ventolin HFA) 1 - 2 puff inhalation Q4H PRN PRN Wheezing 10/28/15 biotin 10,000 mcg capsule (Terrence Biotin) 10,000 mcg PO DAILY nails and hair 10/28/15 cholecalciferol (vitamin D3) 25 mcg (1,000 unit) tablet (Vitamin D3) 1,000 unit PO DAILY vitamin 10/28/15 coenzyme Q10 100 mg capsule (Co Q-10) 100 mg PO DAILY vitamin 10/28/15 cyanocobalamin (vitamin B-12) 500 mcg tablet 1,500 mcg PO DAILY@0800 vitamin 10/28/15 multivitamin (Daily Multiple tablet) 1 ea PO DAILY vitamin 10/28/15 zinc sulfate 50 mg zinc (220 mg) capsule 220 mg PO DAILY vitamin 10/28/15 atorvastatin 20 mg tablet 20 mg PO QHS hld 06/29/23 dicyclomine 20 mg tablet 20 mg PO Q6H PRN abdominal pain 06/29/23 levothyroxine 88 mcg tablet 88 mcg PO DAILY thyroid 06/29/23 sertraline 100 mg tablet 100 mg PO Q24H depression 06/29/23 hydroxyzine HCl 25 mg tablet 25 mg PO Q6H PRN anxiety 06/30/23 metformin 500 mg tablet,extended release 24 hr 500 mg PO BID diabetes 06/30/23 pantoprazole 40 mg tablet,delayed release 40 mg PO DAILY #30 tabs 06/30/23 oxycodone-acetaminophen 5 mg-325 mg tablet 1 tab PO Q6H PRN pain 3 days #15 tabs 07/04/23 acetaminophen 500 mg tablet (Acetaminophen Extra Strength) 1,000 mg PO BID PRN PRN pain 07/16/23 oxycodone-acetaminophen 5 mg-325 mg tablet 1 tab PO Q6H PRN PRN Pain 6-10 out of 10 5 days #20 tabs 07/19/23 vancomycin 25 mg/mL oral solution (Firvanq) 125 mg (5 mL) PO Q6 7 days #140 mL 07/19/23
--- NOTE | 2023-07-19 15:00 | CASEMGMT ---
Pt. has order for discharge. FELICITY SANTO called [facility] to do a shrestha check on Firvanq. FELICITY SANTO informed by pharmacist that the cost in $10 for liquid or oral form and that there is no prior-auth required. Pharmacist also informed RN GAL that they will not have the liquid form available till late tomorrow afternoon. FELICITY ASNTO called [facility] and verified that they do have the liquid form of Firvanq available here. FELICITY SANTO in to pt. room to discuss possibility of switching Firvanq to [facility] so that she can have the medication today and to discuss any needs at discharge. Pt. informed of situation surrounding Firvanq but she states she does not want to change the pharmacy as her son is waiting outside and she does not want him to have to wait any further. I informed pt. I will speak with Dr. Reese about this and what next steps should be. Pt. denies having any other needs at discharge at this time. Pt. denies having any additional questions/concerns at this time. FELICITY SANTO spoke with Dr. Reese about the situation concerning Firvanq and he informed FELICITY SANTO that he was contacted by [facility] and has already changed the script from liquid to pill form. FELICITY SANTO updated pt's nurse on this information and also updated pt. on this. Pt. voices understanding of this and denies having any additional questions at this time.
== END 2023-07-19 15:34 | disposition home or self-care (01) | DRG 373 ==
PROVIDERS: Admitting Provider Internal Medicine; PCP Family Medicine; Visit Provider Hospitalist
DX: A04.72 Enterocolitis due to Clostridium difficile, not specified as recurrent (principal); E03.9 Hypothyroidism, unspecified; E11.9 Type 2 diabetes mellitus without complications; I10 Essential (primary) hypertension; F32.A Depression, unspecified; E78.5 Hyperlipidemia, unspecified; E66.9 Obesity, unspecified; Z68.32 Body mass index [BMI] 32.0-32.9, adult; Z90.49 Acquired absence of other specified parts of digestive tract; Z90.710 Acquired absence of both cervix and uterus; Z79.84 Long term (current) use of oral hypoglycemic drugs; Z79.899 Other long term (current) drug therapy; Z85.41 Personal history of malignant neoplasm of cervix uteri; Z83.79 Family history of other diseases of the digestive system
CPT/HCPCS: 36415; 80053; 83630; 83735; 84100; 84443; 85025; 87177; 87209; 87493; 87506; 94668; 99252; A4216; G0463; J2405

== ENCOUNTER 2023-08-22 15:50 | Emergency (ER) | payer OTHER, SELFPAY ==
[2023-08-22 15:50] VITALS: BP 151/93; PULSE 117; RESP 20; TEMP 37.1; O2SAT 97; BMI 33.5
--- NOTE | 2023-08-22 16:14 | EKG12_ITS ---
Test Reason : ABD PAIN Blood Pressure : / mmHG Vent. Rate : 111 BPM Atrial Rate : 111 BPM P-R Int : 188 ms QRS Dur : 072 ms QT Int : 328 ms P-R-T Axes : 033 020 048 degrees QTc Int : 446 ms Sinus tachycardia Nonspecific T wave abnormality Abnormal ECG Confirmed by JOSEE ALEGRE, BETH ([id number]), editorial writer VICENTE POZO ([id number]) on 08/23/2023 9:46:18 AM Referred By: Confirmed By:BETH TRIPP MD
--- NOTE | 2023-08-22 16:15 | ED.VIS.GI ---
HPI HPI - GI History of Present Illness Chief Complaint: Abd Pain Informant: patient Narrative Narrative: The patient presents with abdominal pain and some blood in stool and/or urine. Patient was seen in [facility] and discharged about 13 hours ago from the ER. She had lower abdominal pain. She states they gave her meds for pain and nausea and steroids and sent her home. They also did blood work. I also found out they did a CAT scan. I did review the results of the CAT scan on the patient's MyChart on her phone. This did show some terminal ileitis which is likely the reason for the steroids. 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 Patient is concerned about her workup last night because last time she went to this hospital she was told she had colitis and within a week she had her gallbladder taken out here. She attempted to follow-up with her primary physician today and was referred back to the ER. Patient has been having chronic right flank pain for the last several months. That is not new. But she does have some more pain toward the right lower quadrant. Today she had some blood in the toilet after she urinated and moved her bowels. She is not sure which it was. But it was red blood distinct from the stool. She had some blood and clots in the urine recently which is 1 thing that prompted her to go to an urgent care visit about a week ago. Although this patient has had a complex history for the last few months, she is still having nausea and vomiting despite Zofran at home, she is still having pain and discomfort, she is having some blood in the stool and urine and is understandably concerned about this. [facility] Medical History Cervical cancer Diabetes mellitus Hyperlipidemia Hypothyroidism Home Medications albuterol sulfate 90 mcg/actuation aerosol inhaler (Ventolin HFA) 1 - 2 puff inhalation Q4H PRN PRN Wheezing 10/28/15 [History Last Taken 10/28/15 1 - 2 PUFF] biotin 10,000 mcg capsule (Terrence Biotin) 10,000 mcg PO DAILY nails and hair 10/28/15 [History Last Taken 07/16/23] cholecalciferol (vitamin D3) 25 mcg (1,000 unit) tablet (Vitamin D3) 1,000 unit PO DAILY vitamin 10/28/15 [History Last Taken 07/16/23] coenzyme Q10 100 mg capsule (Co Q-10) 100 mg PO DAILY vitamin 10/28/15 [History Last Taken 07/16/23] cyanocobalamin (vitamin B-12) 500 mcg tablet 1,500 mcg PO DAILY@0800 vitamin 10/28/15 [History Last Taken 07/16/23] multivitamin (Daily Multiple tablet) 1 ea PO DAILY vitamin 10/28/15 [History Last Taken 07/16/23] zinc sulfate 50 mg zinc (220 mg) capsule 220 mg PO DAILY vitamin 10/28/15 [History Last Taken 10/28/15 220 MG] atorvastatin 20 mg tablet 20 mg PO QHS hld 06/29/23 [History Last Taken 07/15/23] dicyclomine 20 mg tablet 20 mg PO Q6H PRN abdominal pain 06/29/23 [History Last Taken Unknown] levothyroxine 88 mcg tablet 88 mcg PO DAILY thyroid 06/29/23 [History Last Taken 07/16/23] sertraline 100 mg tablet 100 mg PO Q24H depression 06/29/23 [History Last Taken Unknown] hydroxyzine HCl 25 mg tablet 25 mg PO Q6H PRN anxiety 06/30/23 [History Last Taken Unknown] metformin 500 mg tablet,extended release 24 hr 500 mg PO BID diabetes 06/30/23 [History Last Taken Unknown] pantoprazole 40 mg tablet,delayed release 40 mg PO DAILY #30 tabs 06/30/23 [Rx Last Taken 07/16/23] acetaminophen 500 mg tablet (Acetaminophen Extra Strength) 1,000 mg PO BID PRN PRN pain 07/16/23 [History Last Taken 07/16/23] dicyclomine 10 mg capsule 20 mg (2 x 10 mg) PO TIDAC PRN abdominal pain #20 CAPSULES 08/22/23 [Rx Last Taken Unknown] hydroxyzine pamoate 25 mg capsule 50 mg (2 x 25 mg) PO TID PRN PRN Anxiety #20 CAPSULES 08/22/23 [Rx Last Taken Unknown] promethazine 25 mg tablet 25 mg PO Q6H PRN PRN Nausea #10 TABLETS 08/22/23 [Rx Last Taken Unknown] Allergy/AdvReac Type Severity Reaction Status Date / Time Anesthetics - Amide Type - AdvReac Severe confusion Verified 08/22/23 15:50 Select A Anesthetics - Riri Type- AdvReac Severe Other Verified 08/22/23 15:50 Parabens Family History Other Anesth complication del NEC-unsp Anesthesia complication Surgical History History of hysterectomy for cancer History of radical hysterectomy Hx laparoscopic cholecystectomy Social History household members: spouse Smoking Status: Never smoker ROS ROS ED ROS Narrative A complete review of systems was performed and is negative except as documented in the history of present illness. Some specific details below. Constitutional: No recent fevers or chills. EYE: No visual complaints or pain. ENT: No difficulty swallowing. No swelling. No pain. CV: No chest pain or palpitations. Respiratory: No dyspnea. No hemoptysis. No difficulty taking breaths. GI: Please see history of present illness. : No frequency dysuria she has had some hematuria with small clots. Musculoskeletal: No recent trauma. No pains. Skin: No rash. Nondiaphoretic. Neuro: No weakness or numbness. Endocrine: No polyuria or polydipsia. EXAM Physical Exam Narrative Exam Narrative: CONSTITUTIONAL: Patient is nontoxic in appearance. The patient looks comfortable. HEENT: No notable trauma. Mucous membranes moist. No sinus tenderness. No indication of pain with swallowing. EYES: No conjunctival injection. No proptosis. CARDIOVASCULAR: Mildly tachycardic rate. Regular rhythm. No notable murmur. No JVD. RESPIRATORY: No respiratory distress. Breathing is unlabored. No wheezes. No rhonchi. No rales. No pain with a deep breath. GASTROINTESTINAL: Not distended. Bowel sounds are normal. Does have some mild right lower quad tenderness. No guarding. No rebound. No palpable mass. No bruit. GENITOURINARY: No tenderness over the bladder. No CVA tenderness. MUSCULOSKELETAL: Atraumatic. No peripheral edema. No cord. No tenderness along the deep venous system. No asymmetry. NEUROLOGICAL: Patient is alert and appropriate. No focal deficit noted. SKIN: No noted rashes. No diaphoresis. PSYCHIATRIC: Patient is calm. Mood is appropriate. Const Vital Signs: 08/22/23 15:50 08/22/23 19:44 08/22/23 21:00 Temperature 98.7 F Temperature Source Temporal Pulse Rate 117 H 90 Respiratory Rate 20 H 14 Blood Pressure 151/93 H 154/98 H 150/98 H Blood Pressure Mean 112 116 115 Pulse Ox 97 99 Oxygen Delivery Method Room Air Room Air MDM MDM MDM Narrative Medical decision making narrative: Patient CBC is overall normal. Patient's electrolytes are overall normal. Although her creatinine is just a little bit high, it is much higher than her baseline and I believe this is likely due to some dehydration. Her, her glucose is up at 340. Patient's liver function test are overall normal. Patient's lactate is high at 3.9. But she is also dehydrated a bit per her labs and her she is on metformin that is known to cause this. We did give the patient IV fluids. Treated her hyperglycemia. I explained that I wanted to recheck lactate. I expect this to come down but I wanted to be certain. Patient had other fluids given but they were not running. There is an issue with drawing and then running her lactate and it would have to be redrawn and she does not want to wait. She did request that I get her something for anxiety to go. She requested that she was on Bentyl once and that helped her a lot. She has Zofran at home so I will write for some Phenergan in case she has further nausea is not controlled. My independent rotation of her CT of the abdomen does not show any acute process this final reading is similar. Has an appointment in her primary physician's office at about noon tomorrow. She has an appointment with her primary physician this coming week. She would like to go home now. This is reasonable. I fully expect her lactate to come down as I think it is due to the dehydration and metformin. Lab Data Attestation: I reviewed the patient's lab results. Labs: Laboratory Results - last 24 hr 08/22/23 08/22/23 08/22/23 16:38 16:45 18:31 WBC 10.7 RBC 4.67 Hgb 12.7 Hct 38.9 MCV 83.3 MCH 27.2 MCHC 32.6 RDW Std Deviation 38.1 RDW Coeff of Fly 12.6 Plt Count 334 MPV 9.8 Immature Gran % (Auto) 1.100 H Neut % (Auto) 90.5 H Lymph % (Auto) 6.4 L [place] % (Auto) 1.8 Eos % (Auto) 0.0 Baso % (Auto) 0.2 Absolute Neuts (auto) 9.6 H Absolute Lymphs (auto) 0.68 L Nucleated RBC % 0 Sodium 138 Potassium 3.8 Chloride 103 Carbon Dioxide 23.0 Anion Gap 12 BUN 21 H Creatinine 1.08 H Estim Creat Clear Calc 49.63 Est GFR (MDRD) Af Amer 67 Est GFR (MDRD) Non-Af 56 L BUN/Creatinine Ratio 19.4 Glucose 341 H Lactic Acid 3.9 H* Calcium 10.0 Total Bilirubin 0.40 AST 16 ALT 30 Alkaline Phosphatase 105 Total Protein 8.4 H Albumin 4.0 Globulin 4.4 H Albumin/Globulin Ratio 0.9 Lipase 24 Urine Color Yellow Urine Clarity Clear Urine pH 5.0 Ur Specific [place] 1.015 Urine Protein 15 H Urine Glucose (UA) 1000 H Urine Ketones 5 H Urine Occult Blood 10 H Urine Nitrite Negative Urine Bilirubin Negative Urine Urobilinogen Normal Ur Leukocyte Esterase Negative Urine RBC 0 SEEN Urine WBC 0 SEEN Ur Squamous Epith Cells 0-5 SEEN Urine Bacteria 0 SEEN Urine Mucus 0 SEEN POC Glucose 224 H 08/22/23 20:19 WBC RBC Hgb Hct MCV MCH MCHC RDW Std Deviation RDW Coeff of Fly Plt Count MPV Immature Gran % (Auto) Neut % (Auto) Lymph % (Auto) [place] % (Auto) Eos % (Auto) Baso % (Auto) Absolute Neuts (auto) Absolute Lymphs (auto) Nucleated RBC % Sodium Potassium Chloride Carbon Dioxide Anion Gap BUN Creatinine Estim Creat Clear Calc Est GFR (MDRD) Af Amer Est GFR (MDRD) Non-Af BUN/Creatinine Ratio Glucose Lactic Acid Cancelled Calcium Total Bilirubin AST ALT Alkaline Phosphatase Total Protein Albumin Globulin Albumin/Globulin Ratio Lipase Urine Color Urine Clarity Urine pH Ur Specific [place] Urine Protein Urine Glucose (UA) Urine Ketones Urine Occult Blood Urine Nitrite Urine Bilirubin Urine Urobilinogen Ur Leukocyte Esterase Urine RBC Urine WBC Ur Squamous Epith Cells Urine Bacteria Urine Mucus POC Glucose Radiography Diagnostic Testing: Clinical Impression(s) from Imaging Studies Abdomen/Pelvis CT 08/22/23 17:35 IMPRESSION: No evidence of acute intra-abdominal process or focal formation. Normal appendix. Electronically Signed: Felipe Hill DO at 18:01 EST , EKG Initial EKG: Comments: My independent interpretation of the patient's EKG shows sinus rhythm with slightly tachycardic rate at 111. No ectopy. This rhythm does look to be sinus tach. No acute ST elevation or depression. [place] interval, QRS duration and QTc are normal. Discharge Plan Triage Chief Complaint: Abd Pain ED Provider: Josh Billy Dx/Rx/DC Orders Clinical Impression: History of diabetes mellitus, type II, History of colitis, Anxiety, Hyperglycemia, Elevated lactic acid level, Abdominal pain Instructions: ED Abdominal Pain Unkn Cause Fem Prescriptions: New dicyclomine 10 mg capsule 20 mg PO TIDAC PRN (Reason: abdominal pain) Qty: 20 0RF hydroxyzine pamoate [hydroxyzine pamoate] 25 mg capsule 50 mg PO TID PRN PRN (Reason: Anxiety) Qty: 20 0RF promethazine [promethazine] 25 mg tablet 25 mg PO Q6H PRN PRN (Reason: Nausea) Qty: 10 0RF No Action multivitamin [Daily Multiple] 1 EACH tablet 1 ea PO DAILY cyanocobalamin (vitamin B-12) 500 MCG tablet 1,500 mcg PO DAILY@0800 biotin [Terrence Biotin] 10,000 MCG capsule 10,000 mcg PO DAILY albuterol sulfate [Ventolin HFA] 1 INHALER inhaler 1 - 2 puff inhalation Q4H PRN PRN (Reason: Wheezing) coenzyme Q10 [Co Q-10] 100 MG capsule 100 mg PO DAILY zinc sulfate 220 MG capsule 220 mg PO DAILY Patient Comments: only when she has a cold cholecalciferol (vitamin D3) [Vitamin D3] 1,000 UNIT tablet 1,000 unit PO DAILY atorvastatin 20 mg tablet 20 mg PO QHS Patient Comments: Take 1 tablet by mouth daily at bedtime. For cholesterol. dicyclomine 20 mg tablet 20 mg PO Q6H PRN (Reason: abdominal pain) Patient Comments: Take 1 tablet (20 mg) by mouth 4 times a day before meals. levothyroxine 88 mcg tablet 88 mcg PO DAILY Patient Comments: TAKE 1 TABLET BY MOUTH DAILY before BREAKFAST sertraline 100 mg tablet 100 mg PO Q24H Patient Comments: Take 1 tablet by mouth once daily. hydroxyzine HCl 25 mg tablet 25 mg PO Q6H PRN (Reason: anxiety) Patient Comments: Take 1 tablet by mouth every 6 hours as needed for anxiety. metformin 500 mg tablet extended release 24 hr 500 mg PO BID Hold Instructions: 48 hr from IV contrast from CT a/p Patient Comments: Take 1 tablet by mouth twice daily. pantoprazole 40 mg tablet,delayed release (DR/EC) 40 mg PO DAILY Qty: 30 0RF acetaminophen [Acetaminophen Extra Strength] 500 mg tablet 1,000 mg PO BID PRN PRN (Reason: pain) Primary Care Provider: Blair Cheatham Referrals: Blair Cheatham MD [Primary Care Provider] - As soon as possible Activity Restrictions/Additional Instructions: Follow-up with your primary physician's office tomorrow at noon as scheduled. Disposition Disposition: Home, Self Care
[2023-08-22] MEDS: Ondansetron 4 MG/2 ML Vial IV (16:26)
[2023-08-22] MEDS: Morphine 4 MG/ML Syringe IV ×2 (16:26→19:41)
[2023-08-22] MEDS: 0.9% Normal Saline (1000mL) 1,000 ML 1000 ML IV (16:27)
[2023-08-22 16:49] LABS: Absolute Lymphocyte Count 0.68 X10^3/uL (0.83-4.51); Absolute Neutrophil Count 9.6 X10^3/uL (2.0-7.7); Basophil# 0.02 X10^3/uL; Basophil% 0.2 % (0-1); Hematocrit 38.9 % (37-47); Hemoglobin 12.7 g/dL (12.0-15.0); Lymphocyte # 0.68 X10^3/ul (0.83-4.51); Lymphocyte % 6.4 % (19-41); Mean Corp Hgb Conc 32.6 g/dL (32-36); Mean Corpuscular Hgb 27.2 pg (27.0-32.0); Mean Corpuscular Volume 83.3 fL (81-99); Mean Platelet Vol. 9.8 fl (6.2-12.0); Monocyte# 0.19 X10^3/uL; Monocyte% 1.8 % (0-10); NRBC Flagged by Analyzer 0 % (0-5); Neutrophil # 9.64 X10^3/uL (2.7-7.7); Neutrophil % 90.5 % (47-70); Platelet Count 334 K/mm3 (150-450); RBC Distribution Width CV 12.6 % (11.6-14.6); RBC Distribution Width SD 38.1 fl (35.1-43.9); Red Blood Count 4.67 M/mm3 (4.2-5.4); White Blood Count 10.7 K/mm3 (4.4-11.0)
[2023-08-22 16:59] LABS: Bacteria 0 SEEN /hpf (None Seen); Mucous, Urine 0 SEEN /hpf (<or=2+); Red Blood Cells-Urine 0 SEEN /hpf (0-5); White Blood Cells 0 SEEN /hpf (0-5)
[2023-08-22 17:02] LABS: Color, Urine Yellow (Yellow); Glucose, Dipstick 1000 mg/dl (Normal); Ketone-Dipstick 5 mg/dl (Negative); Leukocyte Esterase-Dipstick Negative /ul (Negative); Nitrite-Dipstick Negative (Negative); Occult Blood-Urine 10 /ul (Negative); Protein-Dipstick 15 mg/dl (Negative); Specific Gravity, Urine 1.015 (1.002-1.030); Urine Bilirubin Dipstick Negative (Negative); Urine Clarity Clear (Clear); Urine Urobilinogen Normal (Normal)
[2023-08-22 17:21] LABS: ALB/GLOB Ratio 0.9 RATIO (0.9-2.4); AST(SGOT) 16 U/L (15-37); Alanine Aminotransfer ALT/SGPT 30 U/L (13-56); Alkaline Phosphatase 105 U/L (45-117); Anion Gap 12 (5-15); BUN 21 mg/dL (7-18); BUN/Creat Ratio 19.4 RATIO (10-20); Chloride 103 mmol/L (98-107); Creatinine, Serum 1.08 mg/dL (0.55-1.02); EST Glomerular Filtration Rate 56 mL/min (>60); Est Glom Filt Rate - Afr Amer 67 mL/min (>60); Estimated Creatinine Clearance 49.63 ml/min; Globulin 4.4 g/dL (2.2-4.2); Glucose 341 mg/dL (74-106); Lipase 24 U/L (13-75); Potassium 3.8 mmol/L (3.5-5.1); Protein, Total 8.4 g/dL (6.4-8.2); Sodium Level 138 mmol/L (136-145)
[2023-08-22 17:30] LABS: Lactic Acid 3.9 mmol/L (0.4-1.9)
--- NOTE | 2023-08-22 17:35 | CT_ITS ---
STUDY: CT ABDOMEN AND PELVIS WITH CONTRAST REASON FOR EXAM: Female, 58 years old. pain, primarily RLQ RADIATION DOSAGE (If Supplied By Facility): CTDIvol = ( 16.37 ) mGy, DLP = ( 1171.05 ) mGycm TECHNIQUE: Transaxial images were obtained from the dome of the diaphragm to the symphysis pubis without oral contrast. IV 100mL Isovue-[id number] was administered. Sagittal and coronal images were reconstructed. Individualized dose optimization techniques were used for this CT. COMPARISON: 07/01/2023 CT abdomen and pelvis FINDINGS: The visualized lung bases are unremarkable. The visualized portions of the heart are within normal limits. Normal liver. There is non-visualization of the gallbladder, which may be secondary to either contraction or a prior cholecystectomy. Normal spleen. Normal pancreas. Normal bilateral adrenal glands. Normal right kidney. Normal left kidney. Normal visualized stomach. Normal small intestine. Normal colon. The appendix is visualized and appears normal. Normal abdominal aorta. Normal inferior vena cava. Normal retroperitoneum. Normal urinary bladder. Mild pelvic free fluid is present. Normal abdominal wall. Normal osseous structures. CT/Abdomen/Pelvis W IV Cont ONLY IMPRESSION: No evidence of acute intra-abdominal process or focal formation. Normal appendix. Electronically Signed: Felipe Hill DO at 18:01 EST ,
[2023-08-22 17:36] LABS: Squamous Epithelial Cells - UA 0-5 SEEN /hpf (5-10)
[2023-08-22] MEDS: 0.9% Normal Saline (1000mL) 1,000 ML 999 ML IV (18:32)
[2023-08-22] MEDS: Insulin Lispro 100 UNIT/ML INSULN.PEN 8 UNIT SC (18:33)
[2023-08-22 18:54] LABS: Bedside Glucose 224 mg/dL (74-106)
[2023-08-22] MEDS: Dicyclomine 10 MG Capsule 20 MG PO (19:41)
[2023-08-22 19:44] VITALS: BP 154/98; PULSE 90; RESP 14; O2SAT 99
[2023-08-22 20:42] LABS: Reflex Lactate? Y
[2023-08-22 21:00] VITALS: BP 150/98
--- NOTE | 2023-08-22 21:44 | ED.RN ---
RASHAD RENTERIA AT BEDSIDE TO REDRAW LACTIC. SECOND SPECIMEN DRAWN AND HEMOLYZED PER LAB. DEXTER LEFT PATIENTS ROOM AND TALKING WITH THIS RN. PT CONFUSED ON WHY BLOOD IS BEING REDRAWN. PT STATES THE NURSE WAS IN HERE EARLIER TO DRAW BLOOD. PT STATES THIS IS RIDICULOUS AND WAS HOPING TO BE AT HOME BY NOW. RN STATES LAB CALLED AND BLOOD HAS HEMOLYZED AND NEEDS REDRAW. RN STATES UNFORTUNATELY ED VISITS ARE NOT ALWAYS QUICK LIKE WE HOPE BUT WE CAN HAVE TO DOCTOR COME SPEAK WITH THE PATIENT. PT CONTINUES TO CUT RN OF STATING HER SON IS IN THE CAR WAITING, THEY WANT TO BE HOME BEFORE THE ROADS GET TOO BAD, HER NURSE SHOWED NO EMPATHY AND WAS LATE TO GIVE PAIN MEDS. DR. CORTEZ AWARE OF PATIENTS REQUESTS AND FELICITY NOYOLA
--- NOTE | 2023-08-22 22:10 | ED.RN ---
PATIENT INFORMED RN SHE HAD A SMALL BOWEL MOVEMENT WITH BLOOD. PTS SON STATES HE WOULD LIKE THE DOCTOR TO COME BACK IN AND TALK WITH PATIENT. PTS SON STATES HE DOES NOT WANT TO DRIVE HER BACK IN THE MIDDLE OF THE NIGHT AND WOULD RATHER HAVE THE PROBLEM DEALT WITH NOW. DR. CORTEZ NOTIFIED
[2023-08-22] MEDS: MethylPREDNISolone 125 MG/2 ML Vial 60 MG IV (22:34)
== END 2023-08-22 22:43 | disposition home or self-care (01) ==
PROVIDERS: Emergency Provider Emergency Medicine; PCP Family Medicine; Visit Provider Emergency Medicine
DX: E11.65 Type 2 diabetes mellitus with hyperglycemia (principal); E87.20 Acidosis, unspecified; R10.9 Unspecified abdominal pain
CPT/HCPCS: 36415; 74177; 80053; 81001; 82962; 83605; 83690; 85025; 87086; 87088; 93005; 96361; 96374; 96375; 96376; 99285; J7030; Q9967; A4216; J2405